=== PATIENT | female | born 1935 | race Caucasian/White ===

== ENCOUNTER 2018-12-11 00:27 | Observation (INO) | payer MEDICARE, OTHER ==
--- OUTSIDE RECORDS SUMMARY | 2018-12-11 00:35 | XMS REPORT | Continuity of Care Document ---
:1935 External Reference #:[id number] Author Name Renee Brandon O.D. Address [address] [place] [address] Care Team Providers Name Role Phone Tamara Fortune M.D. Primary Care Physician Unavailable Payers Date Identification Numbers Payment Provider Subscriber Policy Number: [id number] Medicare - [facility] Ally Deutsch PayID: [id number] [address] [place] [address] Policy Number: [id number] [employer] Ppo/Pos/Epo/Nap Ally Deutsch Group Number: [id number] [address] PayID: [id number] [place] [address] Problems Active Problems Provider Date Essential hypertension Onset: History of myocardial infarction Onset: Gastroesophageal reflux disease Onset: Keratosis Onset: Type 2 diabetes mellitus Onset: Note: 1989 Corneal endothelial dystrophy Arben Cadena M.D. Onset: 09/13/2015 Vitreous degeneration Arben Cadena M.D. Onset: 09/13/2015 Herpesviral keratitis Arben Cadena M.D. Onset: 09/13/2015 Presence of intraocular lens Arben Cadena M.D. Onset: 09/13/2015 Retinal detachment Arben Cadena M.D. Onset: 09/13/2015 Marginal corneal ulcer Marcia Mazariegos O.D. Onset: 01/12/2016 Angular blepharoconjunctivitis Marcia Mazariegos O.D. Onset: 01/12/2016 Conjunctivitis Roberto Poole M.D. Onset: 09/19/2016 Partial recent retinal detachment with Roberto Poole M.D. Onset: 2016 single defect Type 2 diabetes mellitus with mild Roberto Poole M.D. 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 Solution Chlorthalidone Unknown 50mg Tablets Carvedilol Unknown 25mg Tablets Atorvastatin Calcium Unknown 40mg Tablets Celexa every day Unknown 20mg Tablets Imdur Unknown 120mg Tablets ER 24HR Aspirin Unknown 81mg Tablets Lantus Unknown 100Unit/ML Solution Losartan Potassium Unknown 50mg Tablets History Medications Erythromycin apply to the 1Tube H10.89 Roberto Poole, 09/19/2016 - 5mg/GM right eye at M.D. 02/05/2017 Ointment night for 7days Neomycin/Polymyxin/De 1 drop 4 times 5ml H16.041 Marcia Mazariegos, 2015 - xamethasone a day Right O.D. 01/20/2016 eye for 10 3.5-52993-8.1 days Suspension Metformin HCL Unknown - 500mg 02/27/2018 Tablets Amlodipine Besylate Unknown - 5mg 09/14/2016 Tablets Lisinopril Unknown - 40mg Tablets 02/27/2018 Procedures Date Code Description Status 07/02/2018 06181 Est Patient Comprehensive Exam Completed 02/28/2018 70849 Est Patient Comprehensive Exam Completed 02/06/2017 72196 Scanning Computerized Ophthalmic Diagnostic Imaging, Completed Anterior 02/06/2017 46447 Determination Of Refractive State Completed 02/06/2017 67800 Est Patient Comprehensive Exam Completed 09/19/2016 73147 Est Patient Intermediate Exam Completed 02/03/2016 67333 Est Patient Intermediate Exam Completed 01/12/2016 96443 Est Patient Intermediate Exam Completed 09/13/2015 22396 Determination Of Refractive State Completed 09/13/2015 08151 Est Patient Comprehensive Exam Completed 09/13/2015 80740 Pachymetry Completed 04/09/2012 76120 Est Patient Comprehensive Exam Completed 04/03/2011 44432 Est Patient Comprehensive Exam Completed 02/20/2011 29083 Est Patient Intermediate Exam Completed 03/08/2010 14375 Est Patient Comprehensive Exam Completed Encounters Type Date Location Provider Dx Diagnosis Office Visit 09/27/2016 Roberto Luna H10.89 Other conjunctivitis 10:45a , fady Poole M.D. H18.51 Endothelial corneal dystrophy Office Visit 02/23/2014 10:00a Arben Chaudhry 054.43 Herpes Simplex MD Surinder, fady Carrion M.D. Disciform Keratitis Office Visit 02/16/2014 11:15a Arben Chaudhry 054.43 Herpes Simplex MD Surinder, fady Carrion M.D. Disciform Keratitis Office Visit 02/11/2014 1:30p Arben Chaudhry 372.30 Conjunctivitis Christie Cadena MD, fady Carrion M.D. Plan of Treatment 12/07/2018 - Renee Brandon O.D.H18.51 Endothelial corneal dystrophyComments: Smoking can increase the risk of developing or worsening any eye related disease , as well as affect your overall health. If you are a smoker, we strongly recommend that you quit.If you are not a smoker, we strongly recommend that you do not start. use artificial tears at least 3 times a dayif your symptoms worsen, please call the office to be seenFollow up:as [id number] Herpesviral keratitis
--- NOTE | 2018-12-11 01:22 | ED ---
HPI Chest Pain - HPI Summary HPI Summary: This patient is a 83 year old F [facility] by her with a chief complaint of CP and chest heaviness since this earlier today. Pt states that she had 2 episodes of chest pain and heaviness in the afternoon and evening today. The afternoon episode lasted 30 minutes. She says she came to the ED because she got shoulder aches, which she got when she had her LA 16 years ago. notes pt did not feel good the past few days. Pt notes her last stress test was last year. Patient reports SOB. Patient denies diaphoresis. The patient rates the pain 0/10 in severity. Symptoms aggravated by nothing. Symptoms alleviated by nothing. - History of Current Complaint Chief Complaint: EDChestPainROMI Time Seen by Provider: 12/11/18 01:06 Hx Obtained From: Patient, Family/Proposal Director - Onset/Duration: Started Hours Ago - today afternoon, Still Present Timing: Intermittent - 2 episodes of CP and heaviness. First episode was 30 minutes long. Pain Intensity: 0 Pain Scale Used: 0-10 Numeric Aggravating Factor(s): Nothing Alleviating Factor(s): Nothing Associated Signs and Symptoms: Positive: Chest Pain - and chest heaviness, Shortness of Breath, Other: - positive - shoulder, "not feeling good,". Negative: Diaphoresis - Additional Pertinent History Primary Care Physician: JULITA - Allergy/Home Medications Allergies/Adverse Reactions: Allergies Allergy/AdvReac Type Severity Reaction Status Date / Time clopidogrel [From Plavix] Allergy Joint Pain Verified 12/11/18 00:41 hydrocodone Allergy Difficulty Verified 12/11/18 00:41 Breathing ibuprofen Allergy See Comment Verified 12/11/18 00:41 naproxen [From Aleve] Allergy See Comment Verified 12/11/18 00:41 oxycodone Allergy Vomiting Verified 12/11/18 00:41 Home Medications: Home Medications ALPRAZolam [Alprazolam] 0.25 mg PO Q8HR PRN 12/11/18 [History Confirmed 12/11/18 ] Carvedilol [Coreg] 6.25 mg PO QPM 12/11/18 [History Confirmed 12/11/18] Hyoscyamine Sulfate 0.25 mg SL BID 12/11/18 [History Confirmed 12/11/18] Losartan TAB* [Cozaar TAB*] 50 mg PO DAILY 12/11/18 [History Confirmed 12/11/18] PMH/Surg Hx/FS Hx/Imm Hx Previously Healthy: No Endocrine/Hematology History: Reports: Hx Diabetes - LANTUS AND METFORMIN, Hx Anemia - OCCASIONALLY BORDERLINE Denies: Hx Systemic Lupus Erythematosus Cardiovascular History: Reports: Hx Angina, Hx Coronary Artery Disease, Hx Hypercholesterolemia, Hx Hypertension, Hx Myocardial Infarction Denies: Hx Congestive Heart Failure Respiratory History: Denies: Hx Asthma, Hx Chronic Bronchitis, Hx Chronic Obstructive Pulmonary Disease (COPD) GI History: Reports: Hx Gastroesophageal Reflux Disease - ON MED Denies: Hx Cirrhosis, Hx Crohn's Disease, Hx Diverticulosis, Hx Gall Bladder Disease, Hx Gastrointestinal Bleed, Hx Hiatal Hernia, Hx Irritable Bowel, Hx Jaundice, Other GI Disorders History: Denies: Hx Renal Disease Musculoskeletal History: Reports: Hx Back Problems - 3 herniated discs, Other Musculoskeletal History - SPINAL STENOSIS Sensory History: Reports: Hx Contacts or Glasses - GLASSES, Other Sensory Impairments - neuropathy in both feet Denies: Hx Cataracts, Hx Eye Prosthesis, Hx Glaucoma, Hx Legally Blind, Hx Macular Degeneration, Hx Vision Problem, Hx Hearing Aid Opthamlomology History: Reports: Hx Contacts or Glasses - GLASSES, Other Sensory Impairments - neuropathy in both feet Denies: Hx Cataracts, Hx Eye Prosthesis, Hx Glaucoma, Hx Legally Blind, Hx Macular Degeneration, Hx Vision Problem Psychiatric History: Reports: Hx Anxiety - ON MED Denies: Hx Depression, Hx Panic Disorder, Hx Post Traumatic Stress Disorder - Surgical History Surgical History: Yes Surgery Procedure, Year, and Place: LEFT FOOT SURGERY- [facility]. BILATERAL [facility]ACT [facility]TRA[facility] [facility]. RIGHT EYE RETINAL SURGERY- [facility] [place] . GALL BLADDER- [facility]- DECEMBER 01, 2014 Hx Anesthesia Reactions: No - Immunization History Immunizations Up to Date: Yes Infectious Disease History: No Infectious Disease History: Denies: Hx Clostridium Difficile, Hx Hepatitis, Hx of Known/Suspected MRSA, Hx Shingles, Hx Tuberculosis, Traveled Outside the [place] in Last 30 Days - Family History Known Family History: Positive: None - Social History Alcohol Use: Occasionally Hx Substance Use: No Substance Use Type: Reports: None Hx Tobacco Use: Yes Smoking Status (MU): Former Smoker Amount Used/How Often: LIGHT SMOKER FOR MOST OF 15 YEARS Review of Systems Constitutional: Other - positive - "does not feel good" Negative: Skin Diaphoresis Positive: Chest Pain - and chest heaviness Positive: Shortness Of Breath Positive: Myalgia - shoulder aches All Other Systems Reviewed And Are Negative: Yes Physical Exam - Summary Physical Exam Summary: VITAL SIGNS: Reviewed. GENERAL: Patient is a well-developed and nourished FEMALE who is lying comfortable in the stretcher. Patient is not in any acute respiratory distress. HEAD AND FACE: No signs of trauma. No ecchymosis, hematomas or skull depressions. No sinus tenderness. EYES: PERRLA, EOMI x 2, No injected conjunctiva, no nystagmus. EARS: Hearing grossly intact. Ear canals and tympanic membranes are within normal limits. MOUTH: Oropharynx within normal limits. NECK: Supple, trachea is midline, no adenopathy, no JVD, no carotid bruit, no c- spine tenderness, neck with full ROM CHEST: Symmetric, no tenderness at palpation LUNGS: Clear to auscultation bilaterally. No wheezing or crackles. CVS: Regular rate and rhythm, S1 and S2 present, no murmurs or gallops appreciated. ABDOMEN: Soft, non-tender. No signs of distention. No rebound no guarding, and no masses palpated. Bowel sounds are normal. EXTREMITIES: FROM in all major joints, no edema, no cyanosis or clubbing. NEURO: Alert and oriented x 3. No acute neurological deficits. Speech is normal and follows commands. SKIN: Dry and warm Triage Information Reviewed: Yes Vital Signs On Initial Exam: Initial Vitals Temp Pulse Resp BP Pulse Ox 97.6 F 61 16 195/61 95 12/11/18 00:30 12/11/18 00:30 12/11/18 00:30 12/11/18 00:30 12/11/18 00:30 Vital Signs Reviewed: Yes Diagnostics - Vital Signs Vital Signs Temp Pulse Resp BP Pulse Ox 12/11/18 00:30 97.6 F 61 16 195/61 95 - Laboratory Result Diagrams: 12/11/18 01:29 12/11/18 01:29 Lab Statement: Any lab studies that have been ordered have been reviewed, and results considered in the medical decision making process. - Radiology CXR Radiology Interpretation Completed By: ED Physician Summary of Radiographic Findings: no acute process - EKG 0151 Cardiac Rate: NL - 62 BPM EKG Rhythm: Sinus Rhythm Summary of EKG Findings: sinus rhythm, 62 BPM, first degree AV block, LBBB Chest Pain Course/Dx - Course Course Of Treatment: This patient is a 83 year old F presenting to [facility] accompanied by her with a chief complaint of CP and chest heaviness since this earlier today. Pt states that she had 2 episodes of chest pain and heaviness in the afternoon and evening today. The afternoon episode lasted 30 minutes. She says she came to the ED because she got shoulder aches, which she got when she had her LA 16 years ago. notes pt did not feel good the past few days. Pt notes her last stress test was last year. Patient reports SOB. Patient denies diaphoresis. The patient rates the pain 0/10 in severity. Symptoms aggravated by nothing. Symptoms alleviated by nothing. Physical exam shows no remarkable findings. Lab results show RBC 3.61, Hgb 11.3, Hct 33, absolute monos 1.1, sodium 131, chloride 96, BUN 31, BUN/creatinine ratio 36.0, glucose 125, calcium 10.4, AST 12, BNP 271. EKG at 0151 shows sinus rhythm, 62 BPM, first degree AV block, LBBB. CXR shows no acute process. During ED course , pt was given NTG DRIP and OINT, Apresoline. Dx are CP and HTN. At 0323, Dr. Billingsley discusses pt's case with Dr. Cloud, hospitalist, who agrees to admit the pt. Pt is agreeable. - Diagnoses Provider Diagnoses: HTN (hypertension), Chest pain - Provider Notifications Discussed Care Of Patient With: Meenakshi Cloud Time Discussed With Above Provider: 03:23 Instructed by Provider To: Other - Dr. Billingsley discusses pt's case with Dr. Cloud , hospitalist, who agrees to admit the pt. Discharge - Sign-Out/Discharge Documenting (check all that apply): Patient Departure - admit Patient Received Moderate/Deep Sedation with Procedure: No - Discharge Plan Condition: Stable Disposition: ADMITTED TO [facility] Referrals: Tamara Fortune MD [Primary Care Provider] - - Attestation Statements Document Initiated by Scribe: Yes Documenting Scribe: Kolby Mahan Provider For Whom Scribe is Documenting (Include Credential): Dr. Sommer Billingsley MD Scribe Attestation: IKolby, scribed for Dr. Sommer Billingsley MD on 12/11/18 at 0622. Status of Scribe Document: Ready
[2018-12-11] MEDS ORDERED: hydrALAZINE IV* 20 MG/ML VIAL IV SLOW PU ONE (01:28)
[2018-12-11 01:36] LABS: ABS Eosinophils 0.1 10^3/ul (0-0.6); ABS Lymphocytes 1.8 10^3/ul (1.0-4.8); ABS Monocytes 1.1 10^3/ul (0-0.8); ABS Neutrophils 3.6 10^3/ul (1.5-7.7); Eosinophil % 1.4 %; Hematocrit 33 % (35-47); Hemoglobin 11.3 g/dL (12.0-16.0); Lymphocyte % 27.6 %; Mean Corpuscular HGB Conc 34 g/dL (31-36); Mean Corpuscular Hemoglobin 31 pg (27-31); Mean Corpuscular Volume 92 fL (80-97); Mean Platelet Volume 8.1 fL (7.4-10.4); Platelet Count 169 10^3/uL (150-450); Red Blood Count 3.61 10^6 /uL (3.70-4.87); Red Cell Distribution Width 12 % (10-15); White Blood Count 6.7 10^3/uL (3.5-10.8)
[2018-12-11 01:44] LABS: Activated Partial Thrombo Time 34.3 seconds (26.0-38.0); INR 1.01 (0.82-1.09)
[2018-12-11 01:52] LABS: Albumin 3.5 g/dL (3.2-5.2); Albumin/Globulin Ratio 1.2 (1-3); Calcium 10.4 mg/dL (8.6-10.3); EGFR African American 76.6 (>60); EGFR Non-African American 63.3 (>60); Globulin 2.9 g/dL (2-4); Potassium 3.5 mmol/L (3.5-5.0); Total Bilirubin 0.3 mg/dL (0.2-1.0); Total Protein 6.4 g/dL (6.4-8.9)
[2018-12-11 01:54] LABS: Troponin I 0.02 ng/mL (<0.04)
[2018-12-11] MEDS ORDERED: nitroGLYCERIN DRIP* 25,000 MCG/250 ML BTL IV ONE (01:58)
[2018-12-11] MEDS ORDERED: Nitro 2% OINT* (Nitroglycerin) 1 INCH/PAK PAK TOPICAL ONE (04:07)
--- NOTE | 2018-12-11 04:29 | HP ---
History of Present Illness - History of Present Illness Reason for Visit: Chest Heavyness and shortness of breath. History of Present Illness: 83yoF with PMHx Diabetes, CAD s/p [place] 16 years ago without any stents comes in today due to chest heavyness and shortness of breath. Patient states overall she doesn't feel good the last few days. The symptoms occurred at rest. She took few nitro's at home which helped minimally. Was noted to have high BP so started on nitro drip in ER. Her symptoms improved with nitro drip. Past Medical History Diabetes on insulin Anemia Coronary Artery Disease Hypercholesterolemia Hypertension Myocardial Infarction Gastroesophageal Reflux Disease Back Problems - 3 herniated discs Neuropathy of feet. 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 Irritable bowel syndrome Past Surgical History LEFT FOOT SURGERY- [facility]- 2000. BILATERAL CATARACT EXTRACTION- [facility]. RIGHT EYE RETINAL SURGERY- [facility] . GALL BLADDER- [facility]- DECEMBER 01, 2014. Lumbar Spinal stenosis s/p Decompression of L2-3, L3-4, L4-5 in December 2014 Family History Non-contributory at patient's age. Social History Quit smoking in 1972, used to smoking less than pack a day less than 10 years total. Gin and tonic socially when she goes out for dinner. No other drug use. Lives with . 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 Allergies Allergy/AdvReac Type Severity Reaction Status Date / Time clopidogrel [From Plavix] Allergy Joint Pain Verified 12/11/18 00:41 hydrocodone Allergy Difficulty Verified 12/11/18 00:41 Breathing ibuprofen Allergy See Comment Verified 12/11/18 00:41 naproxen [From Aleve] Allergy See Comment Verified 12/11/18 00:41 oxycodone Allergy Vomiting Verified 12/11/18 00:41 Home Medications Medication Instructions Recorded Confirmed Type Citalopram TAB* [Celexa TAB*] 20 mg PO QAM 04/11/13 12/11/18 History Isosorbide Mononitrate [Isosorbide 120 mg PO DAILY 04/11/13 12/11/18 History Mononitrate ER] Acetaminophen [Extra Strength 1,000 mg PO Q6H PRN 01/05/15 12/11/18 History Acetaminop] Atorvastatin* [Lipitor*] 40 mg PO QPM 01/05/15 12/11/18 History Carvedilol TAB* [Coreg TAB*] 12.5 mg PO QAM 01/05/15 12/11/18 History Chlorthalidone TAB* [Hygroton TAB*] 50 mg PO QAM 01/05/15 12/11/18 History Lidocaine PATCH 5%* [Lidoderm 5% 1 patch TRANSDERM DAILY PRN 01/05/15 12/11/18 History Patch*] Aspirin EC TAB* [Ecotrin EC Low 81 mg PO DAILY 05/04/15 12/11/18 History Dose*] Insulin GLARGINE(*) [Lantus(*)] 42 units SUBCUT BEDTIME 05/04/15 12/11/18 History ALPRAZolam [Alprazolam] 0.25 mg PO Q8HR PRN 12/11/18 12/11/18 History Hyoscyamine Sulfate 0.25 mg SL BID 12/11/18 12/11/18 History Review of Systems - Measurements Intake and Output: Intake and Output Last 24 Hours 12/08/18 12/09/18 12/10/18 12/11/18 06:59 06:59 06:59 06:59 Intake Total 21.4 Balance 21.4 Weight 200 lb Intake: IV Fluids 21.4 - Review of Systems Constitutional Symptoms: Negative: Fever Dermatology: Negative: Rash Eyes: Negative: Change in Vision Pulmonary: Negative: Cough Cardiology: Positive: Shortness of Breath Negative: Palpitations, Edema Gastroenterology: Negative: Abdominal Pain, Nausea, Vomiting Endocrinology: Positive: Diabetes Mellitus Objective Vital Signs - 8 hr 12/11/18 12/11/18 12/11/18 00:30 00:37 00:39 Temperature 97.6 F Pulse Rate 61 59 58 Respiratory 16 12 Rate Blood Pressure 195/61 195/61 (mmHg) O2 Sat by Pulse 95 94 97 Oximetry 12/11/18 12/11/18 12/11/18 00:44 01:00 01:08 Temperature Pulse Rate 57 56 56 Respiratory 19 16 15 Rate Blood Pressure 184/68 182/56 (mmHg) O2 Sat by Pulse 99 97 96 Oximetry 12/11/18 12/11/18 12/11/18 01:20 01:21 01:43 Temperature Pulse Rate 58 57 56 Respiratory 20 19 22 Rate Blood Pressure 183/71 179/62 192/88 (mmHg) O2 Sat by Pulse 97 96 98 Oximetry 12/11/18 12/11/18 12/11/18 01:50 01:53 01:55 Temperature Pulse Rate 61 64 68 Respiratory 15 16 20 Rate Blood Pressure 216/88 208/81 215/106 (mmHg) O2 Sat by Pulse 100 100 97 Oximetry 12/11/18 12/11/18 12/11/18 02:00 02:07 02:10 Temperature Pulse Rate 66 64 64 Respiratory 18 16 17 Rate Blood Pressure 223/79 212/78 (mmHg) O2 Sat by Pulse 99 97 97 Oximetry 12/11/18 12/11/18 12/11/18 02:15 02:20 02:25 Temperature Pulse Rate 62 59 60 Respiratory 14 15 12 Rate Blood Pressure 194/76 191/71 196/79 (mmHg) O2 Sat by Pulse 97 98 98 Oximetry 12/11/18 12/11/18 12/11/18 02:30 02:35 02:40 Temperature Pulse Rate 61 60 59 Respiratory 14 13 16 Rate Blood Pressure 192/81 204/80 212/80 (mmHg) O2 Sat by Pulse 96 97 97 Oximetry 12/11/18 12/11/18 12/11/18 02:45 02:50 03:00 Temperature Pulse Rate 60 61 61 Respiratory 13 16 15 Rate Blood Pressure 213/86 198/81 (mmHg) O2 Sat by Pulse 97 97 98 Oximetry 12/11/18 12/11/18 12/11/18 03:01 03:05 03:10 Temperature Pulse Rate 62 61 63 Respiratory 14 7 12 Rate Blood Pressure 211/81 181/83 174/80 (mmHg) O2 Sat by Pulse 97 97 95 Oximetry 12/11/18 12/11/18 12/11/18 03:15 03:20 03:21 Temperature Pulse Rate 62 60 63 Respiratory 16 12 Rate Blood Pressure 162/85 182/71 (mmHg) O2 Sat by Pulse 96 95 Oximetry 12/11/18 12/11/18 12/11/18 03:25 03:30 03:36 Temperature Pulse Rate 58 61 61 Respiratory 13 22 16 Rate Blood Pressure 158/86 182/73 208/90 (mmHg) O2 Sat by Pulse 94 95 97 Oximetry 12/11/18 12/11/18 12/11/18 03:40 03:45 03:52 Temperature Pulse Rate 61 61 61 Respiratory 12 20 10 Rate Blood Pressure 196/90 207/86 154/60 (mmHg) O2 Sat by Pulse 96 97 96 Oximetry 12/11/18 12/11/18 12/11/18 03:53 03:55 04:00 Temperature Pulse Rate 59 60 60 Respiratory 14 21 12 Rate Blood Pressure 173/75 157/76 (mmHg) O2 Sat by Pulse 97 96 96 Oximetry 12/11/18 12/11/18 04:06 04:16 Temperature Pulse Rate 61 62 Respiratory 19 16 Rate Blood Pressure 165/76 171/69 (mmHg) O2 Sat by Pulse 95 96 Oximetry Oxygen Devices in Use Now: None Eyes: No Scleral Icterus, PERRLA Ears/Nose/Mouth/Throat: NL Teeth, Lips, Gums, Clear Oropharnyx, Mucous Membranes Moist Neck: NL Appearance and Movements; NL JVP Respiratory: Clear to Auscultation Cardiovascular: NL Sounds; No Murmurs; No JVD, RRR Abdominal: NL Sounds; No Tenderness; No Distention, No Hepatosplenomegaly Extremities: No Edema Skin: No Rash or Ulcers Neurological: Alert and Oriented x 3, NL Sensation, NL Muscle Strength and Tone Nutrition: Taking PO's Result Diagrams: 12/11/18 01:29 12/11/18 01:29 Assess/Plan/Problems-Billing Assessment: 83yoF w/HTN, DM here due to chest pressure and elevated BP. - Patient Problems (1) Chest pressure Current Visit: Yes Status: Acute Code(s): R07.89 - OTHER CHEST PAIN SNOMED Code(s): 764069843 Comment: Serial Troponins ECHO in AM Stress testing if troponins negative (2) Hypertensive urgency Current Visit: Yes Status: Acute Code(s): I16.0 - HYPERTENSIVE URGENCY SNOMED Code(s): 284385134 Comment: Restart home medication. Monitor BP. (3) Diabetes mellitus Current Visit: Yes Status: Acute Code(s): E11.9 - TYPE 2 DIABETES MELLITUS WITHOUT COMPLICATIONS SNOMED Code(s): 42476644 Comment: Restart lantus and check insulin sliding scale (4) Hyperlipidemia Current Visit: Yes Status: Acute Code(s): E78.5 - HYPERLIPIDEMIA, UNSPECIFIED SNOMED Code(s): 98256207 Comment: Check Lipid panel. (5) DVT prophylaxis Current Visit: Yes Status: Acute Code(s): Z29.9 - ENCOUNTER FOR PROPHYLACTIC MEASURES, UNSPECIFIED SNOMED Code(s): 797386790
[2018-12-11] MEDS ORDERED: Lidocaine PATCH 5%* 1 PATCH TRANSDERM PRN (05:02)
[2018-12-11] MEDS ORDERED: ALPRAZolam TAB* 0.25 MG PO PRN (05:02)
[2018-12-11] MEDS ORDERED: Dextrose 50% Syringe 50 ML* 25 GM/50 ML SYRINGE IV PUSH PRN (05:27)
[2018-12-11] MEDS: Isosorbide Mononitrate ER TAB* 60 MG PO SCH (05:28)
[2018-12-11 05:48] LABS: HDL Cholesterol 40.3 mg/dL
[2018-12-11] MEDS ORDERED: hydrALAZINE IV* 20 MG/ML VIAL IV SLOW PU PRN (06:27)
[2018-12-11] MEDS: Insulin LISPRO* 1 UNITS UNIT SUBCUT SCH ×4 (08:28→20:54)
[2018-12-11] MEDS: Carvedilol TAB* 6.25 MG PO SCH (08:54)
[2018-12-11] MEDS ORDERED: ISOSORBIDE MONONITRATE 120 MG PO SCH (09:00)
[2018-12-11] MEDS ORDERED: Carvedilol TAB* 25 MG PO SCH (09:00)
[2018-12-11] MEDS ORDERED: Losartan TAB* 25 MG PO SCH (09:00)
[2018-12-11] MEDS: Enoxaparin(*) 40 MG/0.4 ML SYR SUBCUT SCH (09:10)
[2018-12-11] MEDS: Aspirin EC TAB* 81 MG TAB.EC PO SCH (09:10)
[2018-12-11] MEDS: Citalopram TAB* 20 MG PO SCH (09:10)
[2018-12-11] MEDS ORDERED: Aminophylline IV* 25 MG/ML 10 ML VIAL ONE (09:46)
[2018-12-11] MEDS ORDERED: Regadenoson* 0.4 MG/5 ML SYRINGE ONE (09:46)
[2018-12-11] MEDS: Chlorthalidone TAB* 50 MG PO SCH (11:33)
[2018-12-11] MEDS: Acetaminophen TAB* 325 MG PO PRN (12:50)
[2018-12-11 14:49] LABS: Urine Appearance Clear; Urine Bilirubin Negative (Negative); Urine Blood 1+ (Negative); Urine Color Straw; Urine Glucose Negative (Negative); Urine Ketones Negative (Negative); Urine Nitrite Negative (Negative); Urine Protein Negative (Negative); Urine Urobilinogen Negative (Negative)
[2018-12-11 14:54] LABS: Urine Bacteria Absent (Absent); Urine Red Blood Cell Absent (Absent); Urine White Blood Cell Absent (Absent)
--- NOTE | 2018-12-11 15:58 | ECHO ---
*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 History: Takotsubo's. Coronary artery disease. PMH: Myocardial infarction. Risk factors: Hypertension. Diabetes mellitus. Conclusions Summary: 1. Left ventricle: The cavity size is normal. Wall thickness is moderately increased. Systolic function is normal. The estimated ejection fraction is 55-60%. Doppler parameters are consistent with elevated ventricular end-diastolic filling pressure. 2. Right ventricle: Systolic function is normal. 3. Mitral valve: There is trace to mild regurgitation. 4. Pericardium, extracardiac: A small amount of pericardial effusion is identified, within limits of normal. 5. No prior echocardiogram to compare. Study data: Transthoracic echocardiogram. Procedure: Transthoracic echocardiography was performed. Image quality was fair. Complete 2D, spectral Doppler, and color flow Doppler. Location: Bedside. Patient status: Inpatient. Patient room number: 444 01. Rhythm: Bradycardia. Findings Left ventricle: The cavity size is normal. Wall thickness is moderately increased. Systolic function is normal. The estimated ejection fraction is 55-60%. Wall motion is normal; there are no regional wall motion abnormalities. Doppler parameters are consistent with abnormal left ventricular relaxation (grade 1 diastolic dysfunction). Doppler parameters are consistent with elevated ventricular end-diastolic filling pressure. Right ventricle: The cavity size is normal. Wall thickness is mildly increased. Systolic function is normal. Left atrium: The atrium is normal in size. Right atrium: The atrium is normal in size. Mitral valve: The leaflets are normal thickness. There is no evidence of stenosis. There is trace to mild regurgitation. Aortic valve: The valve is trileaflet. The leaflets are normal thickness. There is no evidence of stenosis. There is trace regurgitation. Tricuspid valve: Not well visualized. There is no significant regurgitation. Pulmonic valve: Not well visualized. There is no significant regurgitation. Aorta: Aortic root: The aortic root is appears normal. Ascending aorta: The ascending aorta is poorly visualized. Aortic arch: The aortic arch is poorly visualized. Pericardium: A small amount of pericardial effusion is identified, within limits of normal. Pulmonary arteries: Not well visualized. Systemic veins: Inferior vena cava: The vessel is normal in size. The respirophasic diameter changes are blunted (< 50%). Measurements Left ventricle Value Ref Right atrium Value Ref SIVLIA, LAX 4.6 cm 3.8 - 5.2 SI dim, ES 5.0 cm 3.4 - 5.3 ESD, LAX 3.2 cm 2.2 - 3.5 ML dim, ES, A4C 3.2 cm 2.6 - 4.4 FS, LAX 30 % 27 - 45 Estimated RAP 8 mm Hg --------- PW, ED, LAX (H) 1.4 cm 0.6 - 0.9 EF 57 % 54 - 74 Aortic valve Value Ref E', lat vielka, TDI (L) 4.1 cm/sec >=10.0 Vielka diam, ED 2.3 cm ------ --- E/e', lat vielka, 20 Peak v, S 1.26 m/sec --------- TDI VTI, S 30.2 cm --------- E', med vielka, TDI (L) 3.7 cm/sec >=7.0 Mean grad, S 4.0 mm Hg ------ --- E/e', med vielka, 22 Peak grad, S 6.0 mm Hg --------- TDI E', avg, TDI 3.9 cm/sec Mitral valve Value Ref E/e', avg, TDI (H) 21 <=14 Peak E 0.82 m/sec ------ --- Peak A 1.09 m/sec --------- LVOT Value Ref Decel time 203 ms --------- Peak suzette, S 0.91 m/sec Peak grad, D 2.7 mm Hg --------- Mean grad, S 2 mm Hg Peak E/A ratio 0.8 --------- Ventricular septum Value Ref Aortic root Value Ref IVS, ED (H) 1.6 cm 0.6 - 0.9 Root diam 3.1 cm <4.1 Right ventricle Value Ref Decending aorta Value Ref SILVIA, LAX 2.3 cm Colt peak suzette 0.72 m/sec --------- SILVIA minor ax, 2.8 cm 1.9 - 3.5 A4C mid Inferior vena cava Value Ref Diam 1.7 cm --------- Left atrium Value Ref AP dim, ES 3.70 cm 2.70 - 3.80 ML dim, A4C 4.6 cm SI dim, A4C 5.4 cm Vol/bsa, ES, A/L 26 ml/m^2 16 - 34 Legend: (L) and (H) deepti values outside specified reference range. Prepared and electronically signed by Geno Trinidad MD 12/11/2018 15:58
[2018-12-11] MEDS ORDERED: Losartan TAB* 25 MG PO ONE (16:54)
--- NOTE | 2018-12-11 17:45 | PN ---
Subjective Date of Service: 12/11/18 Interval History: seen today post stress test and echo. no chest pressure. BP remain elevated better but elevated in the 150's to 180's. I will increase her losartan to 100 mg with 50 mg additional dose today (in addition to her morning losartan) Past Medical History: Unchanged from Admission Objective Active Medications: Acetaminophen (Tylenol Tab*) 975 mg PO Q6H PRN PRN Reason: PAIN Last Admin: 12/11/18 12:50 Dose: 975 mg Alprazolam (Xanax Tab*) 0.25 mg PO Q8HR PRN PRN Reason: ANXIETY Aspirin (Aspirin Ec Tab*) 81 mg PO DAILY [facility] Last Admin: 12/11/18 09:10 Dose: 81 mg Atorvastatin Calcium (Lipitor*) 40 mg PO QPM [facility] Last Admin: 12/11/18 17:14 Dose: 40 mg Carvedilol (Coreg Tab*) 6.25 mg PO QPM [facility] Last Admin: 12/11/18 17:12 Dose: 6.25 mg Carvedilol (Coreg Tab*) 12.5 mg PO QAM [facility] Last Admin: 12/11/18 08:54 Dose: Not Given Chlorthalidone (Hygroton Tab*) 50 mg PO QAM [facility] Last Admin: 12/11/18 11:33 Dose: 50 mg Citalopram Hydrobromide (Celexa Tab*) 20 mg PO QAM [facility] Last Admin: 12/11/18 09:10 Dose: 20 mg Dextrose (D50w Syringe 50 Ml*) 12.5 gm IV PUSH .FOR FS < 60 - SS PRN PRN Reason: FS < 60 Enoxaparin Sodium (Lovenox(*)) 40 mg SUBCUT Q24H [facility] Last Admin: 12/11/18 09:10 Dose: 40 mg Hydralazine HCl (Apresoline Iv*) 5 mg IV SLOW PU Q6H PRN PRN Reason: HEART RATE/PULSE GREATER THAN: Insulin Glargine (Lantus(*)) 42 units SUBCUT BEDTIME [facility] Insulin Human Lispro (Humalog*) 0 units SUBCUT ACHS [facility]; Protocol Last Admin: 12/11/18 17:09 Dose: Not Given Isosorbide Mononitrate (Imdur Er Tab*) 120 mg PO 0900 [facility] Last Admin: 12/11/18 05:28 Dose: 120 mg Lidocaine (Lidoderm 5% Patch*) 1 patch TRANSDERM DAILY PRN PRN Reason: PAIN Losartan Potassium (Cozaar Tab*) 100 mg PO DAILY [facility] Pharmacy Profile Note (Lidocaine Patch Remove*) 1 note PATCH OFF 2100 [facility] Vital Signs - 8 hr 12/11/18 11:23 Temperature 97.8 F Pulse Rate 62 Respiratory 16 Rate Blood Pressure 188/5 (mmHg) O2 Sat by Pulse 98 Oximetry Oxygen Devices in Use Now: None Appearance: awake, alert no distress. Ears/Nose/Mouth/Throat: NL Teeth, Lips, Gums, Mucous Membranes Moist Neck: NL Appearance and Movements; NL JVP Respiratory: Symmetrical Chest Expansion and Respiratory Effort, Clear to Auscultation Cardiovascular: NL Sounds; No Murmurs; No JVD Abdominal: NL Sounds; No Tenderness; No Distention Neurological: Alert and Oriented x 3 Result Diagrams: 12/11/18 01:29 12/11/18 01:29 Assess/Plan/Problems-Billing Assessment: 83yoF w/HTN, DM here due to chest pressure and elevated BP. - Patient Problems (1) Chest pressure Current Visit: Yes Status: Acute Code(s): R07.89 - OTHER CHEST PAIN SNOMED Code(s): 855090652 Comment: - Serial Troponins negative - ECHO 12/11/18 EF 55-60% diastolic dysfunctions - Nuclear Stress test low risk - will discharge home in am once BP stablized (2) Hypertensive urgency Current Visit: Yes Status: Acute Code(s): I16.0 - HYPERTENSIVE URGENCY SNOMED Code(s): 705813422 Comment: - continue her coreg 12.5 mg am and 6.25 pm; increase losartan to 100 mg daily due to persistent hypertension with BP 180's - Continue cholorthalidone and isosorbide 120 mg daily (3) DVT prophylaxis Current Visit: Yes Status: Acute Code(s): Z29.9 - ENCOUNTER FOR PROPHYLACTIC MEASURES, UNSPECIFIED SNOMED Code(s): 238460612 Comment: - Lovenox 40 mg SQ daily
[2018-12-11] MEDS ORDERED: Atorvastatin* 40 MG TAB PO SCH (18:00)
[2018-12-11] MEDS ORDERED: CARVEDILOL 12.5 MG PO SCH (18:00)
[2018-12-11] MEDS ORDERED: Carvedilol TAB* 6.25 MG PO SCH (18:00)
[2018-12-11] MEDS ORDERED: Insulin GLARGINE(*) 1 UNITS UNIT SUBCUT SCH (21:00)
[2018-12-11] MEDS ORDERED: Lidocaine Patch REMOVE* 1 NOTE MISC PATCH OFF SCH (21:00)
[2018-12-12] MEDS: Acetaminophen TAB* 325 MG PO PRN ×2 (00:39→08:43)
[2018-12-12] MEDS ORDERED: amLODIPine TAB* 5 MG PO ONE (01:05)
[2018-12-12] MEDS ORDERED: hydrALAZINE IV* 20 MG/ML VIAL IV SLOW PU ONE (03:51)
[2018-12-12] MEDS ORDERED: hydrALAZINE IV* 20 MG/ML VIAL ONE (04:17)
[2018-12-12] MEDS: Enoxaparin(*) 40 MG/0.4 ML SYR SUBCUT SCH (05:21)
[2018-12-12 06:09] LABS: BUN/Creatinine Ratio 25.4 (8-20); Calcium 9.3 mg/dL (8.6-10.3); EGFR African American 95.6 (>60); Potassium 3.2 mmol/L (3.5-5.0)
[2018-12-12] MEDS ORDERED: Potassium Chlor TAB* 20 MEQ TAB.ER PO ONE (08:18)
[2018-12-12] MEDS: Insulin LISPRO* 1 UNITS UNIT SUBCUT SCH ×2 (08:25→11:33)
[2018-12-12] MEDS: Isosorbide Mononitrate ER TAB* 60 MG PO SCH (08:38)
[2018-12-12] MEDS: Carvedilol TAB* 6.25 MG PO SCH (08:39)
[2018-12-12] MEDS: Citalopram TAB* 20 MG PO SCH (08:39)
[2018-12-12] MEDS: Chlorthalidone TAB* 50 MG PO SCH (08:39)
[2018-12-12] MEDS: Aspirin EC TAB* 81 MG TAB.EC PO SCH (08:39)
[2018-12-12] MEDS ORDERED: Losartan TAB* 25 MG PO SCH (09:00)
[2018-12-12 10:52] VITALS: BP 102/60
--- NOTE | 2018-12-12 13:29 | DS ---
DISCHARGE SUMMARY: DATE OF ADMISSION: 12/11/18 DATE OF DISCHARGE: 12/12/18 FINAL DISCHARGE DIAGNOSES: 1. Chest pressure secondary to hypertensive urgency. 2. Hypertensive urgency. 3. History of diabetes mellitus. 4. History of hyperlipidemia. 5. History of coronary artery disease. 6. History of gastroesophageal reflux disease. 7. History of anxiety. HOSPITAL COURSE: The patient was admitted via the emergency room at [facility] on 9 to the medical service after she presented to the ER with chest heaviness and shortness of breath t hat came on suddenly prior to admission, preceded by generalized fatigue and weakness for the past fe w days. The symptoms progressed. She took some nitro at home with minimal relief. She noted her bl ood pressure was significantly elevated, and she presented to the ER. In the ER, initially she was s tarted on nitro drip which resolved her symptoms. Therefore, she was admitted to the emergency servi . Her nitro drip was discontinued in the ER prior to admission. Serial cardiac enzymes were obtai tj, which were unremarkable with troponin negative x3. EKG during the hospital stay from the emerge ncy room was fairly unremarkable with normal sinus rhythm. Pulse 62, GA 261, QTc 460, left axis sera ation. No ST wave elevation. She was started on her home medication. I saw and evaluated the patie nt the following morning on 12/11/18, and at that day, she was undergoing a nuclear stress and a rest ing echocardiogram. The nuclear stress test which was done, report noted, reviewed, revealed finding a very small area of ischemia in the anterior septal wall, very low risk. The echocardiogram reveal ed ejection fraction of 55% to 60%, trace mild regurgitation, systolic function normal. No hypokines is. She was maintained in the hospital overnight on 12/11/18 and given her vitals which were signifi cantly elevated. Her blood pressure still at 11 in the morning on 12/11/18 was 188/59. I increased her losartan to 100 from 50. I elected to keep her overnight, and overnight around 2 o'clock in the morning, her blood pressure was 189/65. She was given amlodipine 10 mg x1 dose by the covering physi ron, and I saw and evaluated this patient this morning and her blood pressure was 146/57 and at 10 o 'clock in the morning was 102/60. I decreased her amlodipine to 5 mg. I visited with the patient an d her . I explained to her the dynamic of her blood pressure is not consistently stable throu ghout the day, it is variable, hence we elected to wait 2 weeks before repeating blood pressure check when we make any medication adjustment. She was provided reassurance as much as possible. She seem ed less anxious and I instructed her to follow up with her primary for routine blood pressure check, but she will benefit from titrating her losartan to 100, up from 50, and I am going to initiate a low er dose of amlodipine 5 mg and that will need to be further either titrated or discontinued as an out patient pending her routine followup. Also during the hospital course, her chemistry was noted to be significant for hypokalemia with a potassium of 3.2 on 12/12/18. This was supplemented with 40 mEq of potassium. I am going to send her with a potassium of 20 mEq simply due to the fact that she is o n chlorthalidone which may be contributing to her hypokalemia. Overall, the patient remained stable and not in any acute distress or significant distress. I did also review the EKG part of the stress test, she had sinus bradycardia at baseline. She had no definitive evidence of myocardial ischemia b y EKG criteria noted by Dr. Griffin Antoine. Therefore, with the above finding and workup, I think the p atient is stable for discharge and further followup as an outpatient with her PCP and Cardiology acco rdingly. PHYSICAL EXAMINATION: Temperature 97.6, pulse 67, respiratory rate 16, satting 97%, blood pressure 1 46/57, repeated 102/60. General: She is awake, alert, oriented, pleasant, in no apparent distress. Head and Neck: Normocephalic, atraumatic. Supple. Lungs: Clear to auscultation bilaterally. Car diovascular: S1, S2. Bradycardic. No murmur. Abdomen: Obese, soft, nontender, nondistended. Extre mities: No pedal edema. DISCHARGE MEDICATIONS: She was discharged on the following home meds: 1. Tylenol p.r.n. 2. Xanax 0.25 q.8. 3. Aspirin 81 daily. 4. Lipitor 40 daily. 5. Carvedilol 12.5 in the morning and 6.25 at night. 6. Chlorthalidone 50 mg in the morning. 7. Celexa 20 daily. 8. Hyoscyamine 0.25 sublingual b.i.d. 9. Lantus 42 units. 10. Isosorbide 120 daily. 11. Lidocaine patch p.r.n. New Medication on discharge: 1. Amlodipine 5 at bedtime. 2. Losartan 100 daily. 3. Potassium 20 mEq daily. INPATIENT DIAGNOSTIC STUDY: She had a nuclear stress test which was fairly unremarkable, low risk. Evidence of ischemia in the inferior wall. Echocardiogram: Ejection fraction within normal, 55% to 60%. No valvular disease. Chest x-ray shows cardiomegaly. No pneumonia or acute infiltrate. DISCHARGE RECOMMENDATION: Followup with the primary care in 1 to 2 weeks, further followup with her solar energy advisor as needed at the discretion of her primary. Take all medications as prescribed. DISCHARGE CONDITION: Stable. DISCHARGE DISPOSITION: Home. [id number]/[facility] #: [id number]
== END 2018-12-12 12:55 | disposition home or self-care (01) ==
LOC: ED 00:27 → MEDTELE 06:25 → INTOOBSV 06:25
PROVIDERS: ADMIT Internal Medicine; ATTEND Internal Medicine
DX: R07.89 Other chest pain (principal); I16.0 Hypertensive urgency; E11.9 Type 2 diabetes mellitus without complications; E78.5 Hyperlipidemia, unspecified; I25.10 Atherosclerotic heart disease of native coronary artery without angina pectoris; K21.9 Gastro-esophageal reflux disease without esophagitis; F41.9 Anxiety disorder, unspecified; R06.02 Shortness of breath; Z79.82 Long term (current) use of aspirin; Z79.4 Long term (current) use of insulin; E78.00 Pure hypercholesterolemia, unspecified; I25.2 Old myocardial infarction; K58.9 Irritable bowel syndrome, unspecified
CPT/HCPCS: 36415; 71045; 78452; 80048; 80053; 80061; 81003; 81015; 83036; 83605; 83880; 84484; 85025; 85610; 85730; 93005; 93306; 96365; 96366; 96372; 96375; 96376; 99285; A9270-GY; A9502; G0378; J0280; J0360; J1650; J2785

== ENCOUNTER 2019-08-05 20:55 | Emergency (ER) | payer MEDICARE, OTHER ==
[2019-08-05] MEDS ORDERED: NS 0.9% 1000 ML** 1,000 ML IV ONE (21:59)
[2019-08-05] MEDS ORDERED: Acetaminophen TAB* 325 MG PO ONE (22:03)
--- NOTE | 2019-08-05 22:35 | ED ---
GI/ HPI - HPI Summary HPI Summary: Patient is an 84 y/o F presenting to [facility] with chief complaint of fever. She states that around a week ago she had onset of dysuria and increased urgency of urination. Patient reports initially treating these Sx by consuming cranberry juice but experienced no relief in Sx. Patient notes that she has subsequently been experiencing nausea, back pain, fatigue, chills and noticed fever on . She was evaluated by PCP on 08/05/19 and was diagnosed with a bladder infection. Patient states that she received two shots of IM antibiotics and was prescribed Cipro, which she has not picked up yet. This evening, patient had an increase of her temperature to 103.5 F at home. She took 500 mg Tylenol at around 1800/1900 and came to ED for evaluation. Home medications and allergies are reviewed. - History of Current Complaint Chief Complaint: EDUrogenitalProblems Time Seen by Provider: 08/05/19 21:59 Stated Complaint: FEVER PER EMS Hx Obtained From: Patient Onset/Duration: Started Days Ago, Still Present Timing: Constant, Lasting Days Pain Intensity: 0 Location of Pain: Other - back Associated Signs and Symptoms: Positive: Back Pain, Nausea, Fever, Dysuria, UTI Symptoms - increased urgency of urination, Other: - positive - chills, fatigue - Additional Pertinent History Primary Care Physician: JULITA - Allergy/Home Medications Allergies/Adverse Reactions: Allergies Allergy/AdvReac Type Severity Reaction Status Date / Time clopidogrel [From Plavix] Allergy Joint Pain Verified 08/05/19 20:57 hydrocodone Allergy Difficulty Verified 08/05/19 20:57 Breathing ibuprofen Allergy See Comment Verified 08/05/19 20:57 naproxen [From Aleve] Allergy See Comment Verified 08/05/19 20:57 oxycodone Allergy Vomiting Verified 08/05/19 20:57 Home Medications: Home Medications Citalopram TAB* [Celexa TAB*] 20 mg PO QAM 04/11/13 [History Confirmed 08/08/19] Isosorbide Mononitrate [Isosorbide Mononitrate ER] 120 mg PO DAILY 04/11/13 [ History Confirmed 08/08/19] Acetaminophen [Extra Strength Acetaminop] 1,000 mg PO Q6H PRN 01/05/15 [History Confirmed 08/08/19] Atorvastatin* [Lipitor 80 MG*] 40 mg PO QPM 01/05/15 [History Confirmed 08/08/19 ] Carvedilol TAB* [Coreg TAB*] 12.5 mg PO QAM 01/05/15 [History Confirmed 08/08/19 ] Chlorthalidone TAB* [Hygroton TAB*] 50 mg PO QAM 01/05/15 [History Confirmed ] Lidocaine PATCH 5%* [Lidoderm 5% Patch*] 1 patch TRANSDERM DAILY PRN 01/05/15 [ History Confirmed 08/08/19] Aspirin EC TAB* [Ecotrin EC Low Dose 81 MG*] 81 mg PO DAILY 05/04/15 [History Confirmed 08/08/19] Insulin GLARGINE(*) [Lantus 100 units/ml 10 ml VIAL (*)] 42 units SUBCUT BEDTIME 05/04/15 [History Confirmed 08/08/19] ALPRAZolam [Alprazolam] 0.25 mg PO Q8HR PRN 12/11/18 [History Confirmed 08/08/19 ] Carvedilol [Coreg] 6.25 mg PO QPM 12/11/18 [History Confirmed 08/08/19] Hyoscyamine Sulfate 0.25 mg SL BID 12/11/18 [History Confirmed 08/08/19] Amlodipine Besylate [Norvasc] 5 mg PO BEDTIME 30 Days #30 tablet 12/12/18 [Rx Confirmed 08/08/19] Losartan Potassium 100 mg PO DAILY 30 Days #30 tablet 12/12/18 [Rx Confirmed ] Potassium Chlor TAB* [Potassium Chlor TAB 20 MEQ*] 20 meq PO DAILY 30 Days #30 tab.er 12/12/18 [Rx Confirmed 08/08/19] Sulfamethox/Trimethoprim DS* [Bactrim DS 800/160 TAB*] 1 tab PO BID #28 tab 04/16 [Rx Confirmed 08/08/19] PMH/Surg Hx/FS Hx/Imm Hx Endocrine/Hematology History: Reports: Hx Diabetes, Hx Anemia Denies: Hx Systemic Lupus Erythematosus Cardiovascular History: Reports: Hx Angina, Hx Coronary Artery Disease, Hx Hypercholesterolemia, Hx Hypertension, Hx Myocardial Infarction Denies: Hx Congestive Heart Failure Respiratory History: Denies: Hx Asthma, Hx Chronic Bronchitis, Hx Chronic Obstructive Pulmonary Disease (COPD) GI History: Reports: Hx Gastroesophageal Reflux Disease - ON MED Denies: Hx Cirrhosis, Hx Crohn's Disease, Hx Diverticulosis, Hx Gall Bladder Disease, Hx Gastrointestinal Bleed, Hx Hiatal Hernia, Hx Irritable Bowel, Hx Jaundice, Other GI Disorders History: Denies: Hx Renal Disease Musculoskeletal History: Reports: Hx Back Problems - 3 herniated discs, Other Musculoskeletal History - SPINAL STENOSIS Sensory History: Reports: Hx Contacts or Glasses, Other Sensory Impairments - neuropathy in both feet Denies: Hx Cataracts, Hx Eye Prosthesis, Hx Glaucoma, Hx Legally Blind, Hx Macular Degeneration, Hx Vision Problem, Hx Hearing Aid Opthamlomology History: Reports: Hx Contacts or Glasses, Other Sensory Impairments - neuropathy in both feet Denies: Hx Cataracts, Hx Eye Prosthesis, Hx Glaucoma, Hx Legally Blind, Hx Macular Degeneration, Hx Vision Problem Psychiatric History: Reports: Hx Anxiety - ON MED Denies: Hx Depression, Hx Panic Disorder, Hx Post Traumatic Stress Disorder - Surgical History Surgery Procedure, Year, and Place: LEFT FOOT SURGERY- [facility] [employer]- 2000. [place] [facility] [place]. [place] [facility] [place] - E[place] . GALL BLADDER- [employer]- DECEMBER 01, 2014 Hx Anesthesia Reactions: No Infectious Disease History: No Infectious Disease History: Denies: Hx Clostridium Difficile, Hx Hepatitis, Hx of Known/Suspected MRSA, Hx Shingles, Hx Tuberculosis, Traveled Outside the [place] in Last 30 Days - Family History Known Family History: Negative: Diabetes - Social History Alcohol Use: Occasionally Hx Substance Use: No Substance Use Type: Reports: None Hx Tobacco Use: Yes Smoking Status (MU): Former Smoker Amount Used/How Often: LIGHT SMOKER FOR MOST OF 15 YEARS Review of Systems - ROS Summary Review of Systems Summary: Home Medications Medication Instructions Recorded Confirmed Type Citalopram TAB* [Celexa TAB*] 20 mg PO QAM 04/11/13 12/11/18 History Isosorbide Mononitrate [Isosorbide 120 mg PO DAILY 04/11/13 12/11/18 History Mononitrate ER] Acetaminophen [Extra Strength 1,000 mg PO Q6H PRN 01/05/15 12/11/18 History Acetaminop] Atorvastatin* [Lipitor 80 MG*] 40 mg PO QPM 01/05/15 12/11/18 History Carvedilol TAB* [Coreg TAB*] 12.5 mg PO QAM 01/05/15 12/11/18 History Chlorthalidone TAB* [Hygroton TAB*] 50 mg PO QAM 01/05/15 12/11/18 History Lidocaine PATCH 5%* [Lidoderm 5% 1 patch TRANSDERM DAILY PRN 01/05/15 12/11/18 History Patch*] Aspirin EC TAB* [Ecotrin EC Low 81 mg PO DAILY 05/04/15 12/11/18 History Dose 81 MG*] Insulin GLARGINE(*) [Lantus 100 42 units SUBCUT BEDTIME 05/04/15 12/11/18 History units/ml 10 ml VIAL (*)] ALPRAZolam [Alprazolam] 0.25 mg PO Q8HR PRN 12/11/18 12/11/18 History Carvedilol [Coreg] 6.25 mg PO QPM 12/11/18 12/11/18 History Hyoscyamine Sulfate 0.25 mg SL BID 12/11/18 12/11/18 History Amlodipine Besylate [Norvasc] 5 mg PO BEDTIME 30 Days #30 tablet 12/12/18 Rx Losartan Potassium 100 mg PO DAILY 30 Days #30 tablet 12/12/18 Rx Potassium Chlor TAB* [Potassium 20 meq PO DAILY 30 Days #30 tab.er 12/12/18 Rx Chlor TAB 20 MEQ*] Sulfamethox/Trimethoprim DS* 1 tab PO BID #28 tab 08/06/19 Rx [Bactrim DS 800/160 TAB*] Positive: Fever, Chills, Fatigue Positive: Nausea Positive: dysuria, urgency - urination Positive: Myalgia - back pain All Other Systems Reviewed And Are Negative: Yes Physical Exam - Summary Physical Exam Summary: General: Well-developed, Obese female. No acute distress. HEENT: Normocephalic, Atraumatic. Eyes: Conjuctiva normal, PERRL. Oropharynx: Clear, mucous membranes moist, (-) exudates. Neck: Soft, FROM, (-) lymphadenopathy, (-) thyromegaly, (-) JVD. Cardiovascular: Normal sinus rhythm, (-) murmur. Lungs: Clear to auscultation bilaterally (-) wheezes, (-) rales, (-) rhonchi. Abdomen: Soft, non-tender, non-distended, (-) organomegaly, normal bowel sounds. Back: (-) CVA tenderness Extremities: No edema. Skin: Warm, dry, (-) rash. Neuro: Alert and oriented x3, moves all extremities equally. No ataxia. No gait disturbance. No sensory deficit. Normal strength, normal sensation. Psychiatric: Mood normal, affect normal Triage Information Reviewed: Yes Vital Signs On Initial Exam: Initial Vitals Temp Pulse Resp BP Pulse Ox 96.7 F 65 20 155/68 94 08/05/19 20:58 08/05/19 20:58 08/05/19 20:58 08/05/19 20:58 08/05/19 20:58 Vital Signs Reviewed: Yes Procedures - Sedation Patient Received Moderate/Deep Sedation with Procedure: No Diagnostics - Vital Signs Vital Signs Temp Pulse Resp BP Pulse Ox 08/05/19 21:20 100.4 F 08/05/19 20:58 96.7 F 65 20 155/68 94 - Laboratory Result Diagrams: 08/05/19 22:55 08/05/19 22:55 Lab Statement: Any lab studies that have been ordered have been reviewed, and results considered in the medical decision making process. - CT CT ABD/PEL CT Interpretation Completed By: Radiologist Summary of CT Findings: 1. There is colonic diverticulosis without evidence for acute diverticulitis. 2. There is urinary bladder wall thickening and mild fat stranding, cannot. exclude cystitis. 3. There is a wedge-shaped region of decreased enhancement in the superior pole. of the right kidney with mild adjacent perinephric fat stranding, suspicious. for right renal acute pyelonephritis. There is wall thickening and enhancement. involving the right renal pelvis and right ureter, suspicious for right. pyelitis and ureteritis. THIS REPORT WAS REVIEWED BY ED PHYSICIAN. GIGU Course/Dx - Course Course Of Treatment: 84-year-old female presenting from home for fever. Patient states she's been having symptoms of frequency and dysuria for about a week. She's been self treating herself with cranberry juice. Earlier today she went to the doctor's and was given IM antibiotics for UTI. A prescription for Toprol was called in but she has not picked it up yet. Tonight however her temperature went up greater than 103. Patient became concerned and came in for evaluation. She is febrile. Not significantly ill appearing. No significant abdominal or CVA tenderness. Workup demonstrates obvious urinary tract infection. Slightly elevated white count. CT demonstrates pyelonephritis. Patient given - Diagnoses Provider Diagnoses: Acute pyelonephritis Discharge ED - Sign-Out/Discharge Documenting (check all that apply): Patient Departure - discharge - Discharge Plan Condition: Stable Disposition: HOME Prescriptions: Sulfamethox/Trimethoprim DS* [Bactrim DS 800/160 TAB*] 1 tab PO BID #28 tab Patient Education Materials: Kidney Infection (ED) Referrals: Tamara Fortune MD [Primary Care Provider] - 3 Days Additional Instructions: PLEASE RETURN TO ED FOR ANY NEW OR CONCERNING SYMPTOMS. PLEASE FOLLOW UP WITH YOUR PRIMARY CARE PHYSICIAN WITHIN THREE DAYS. - Billing Disposition and Condition Condition: STABLE Disposition: Home - Attestation Statements Document Initiated by Evonne: Yes Documenting Scribe: GRACIE SINGH Provider For Whom Cristinaibe is Documenting (Include Credential): LEONARDO PURVIS MD Scribe Attestation: GRACIE Gill, scribed for LEONARDO PURVIS MD on 08/09/19 at 0230. Scribe Documentation Reviewed: Yes Provider Attestation: The documentation as recorded by the GRACIE juarez accurately reflects the service I personally performed and the decisions made by me, LEONARDO PURVIS MD Status of Scribe Document: Viewed
[2019-08-05 23:07] LABS: Hematocrit 30 % (35-47); Hemoglobin 9.9 g/dL (12.0-16.0); Mean Corpuscular HGB Conc 34 g/dL (31-36); Mean Corpuscular Hemoglobin 30 pg (27-31); Mean Corpuscular Volume 91 fL (80-97); Mean Platelet Volume 8.2 fL (7.4-10.4); Platelet Count 157 10^3/uL (150-450); Red Blood Count 3.26 10^6 /uL (3.70-4.87); Red Cell Distribution Width 13 % (10-15); White Blood Count 15.4 10^3/uL (3.5-10.8)
[2019-08-05 23:13] LABS: INR 1.32 (0.82-1.09)
[2019-08-05 23:27] LABS: ALT 7 U/L (7-52); AST 10 U/L (13-39); Alkaline Phosphatase 42 U/L (34-104); Anion Gap 4 mmol/L (2-11); BUN/Creatinine Ratio 26.1 (8-20); Blood Urea Nitrogen 24 mg/dL (6-24); C Reactive Protein 72.85 mg/L (<8.01); CO2 Carbon Dioxide 29 mmol/L (22-32); Calcium 8.1 mg/dL (8.6-10.3); Chloride 97 mmol/L (101-111); EGFR African American 70.7 (>60); EGFR Non-African American 58.4 (>60); Globulin 2.9 g/dL (2-4); Glucose 145 mg/dL (70-100); Potassium 3.4 mmol/L (3.5-5.0); Sodium 130 mmol/L (135-145); Total Protein 5.9 g/dL (6.4-8.9)
[2019-08-05 23:43] LABS: ABS Lymphocytes 1.5 10^3/ul (1.0-4.8); ABS Monocytes 2.4 10^3/ul (0-0.8); ABS Neutrophils 11.5 10^3/ul (1.5-7.7); Lymphocyte % 9.8 %
[2019-08-05 23:58] LABS: Urine Appearance Cloudy; Urine Bilirubin Negative (Negative); Urine Blood 3+ (Negative); Urine Color Yellow; Urine Glucose Negative (Negative); Urine Ketones Negative (Negative); Urine Nitrite Negative (Negative); Urine Protein Negative (Negative); Urine Specific Gravity 1.013 (1.010-1.030); Urine Urobilinogen Negative (Negative)
[2019-08-06 00:01] LABS: Urine Bacteria Absent (Absent); Urine Red Blood Cell 3+(>10/hpf) (Absent); Urine White Blood Cell 3+(>20/hpf) (Absent)
[2019-08-06] MEDS ORDERED: Iodixanol* (CONTRAST) 320 MG/ML 100 ML SDV IV ONE (00:13)
[2019-08-06 02:34] VITALS: BP 149/56
== END 2019-08-06 02:43 | disposition home or self-care (01) ==
LOC: ED 20:55
DX: N10 Acute pyelonephritis (principal); K57.30 Diverticulosis of large intestine without perforation or abscess without bleeding; R11.0 Nausea; R53.83 Other fatigue; E11.9 Type 2 diabetes mellitus without complications; Z79.4 Long term (current) use of insulin; I25.119 Atherosclerotic heart disease of native coronary artery with unspecified angina pectoris; I10 Essential (primary) hypertension; E78.00 Pure hypercholesterolemia, unspecified; K21.9 Gastro-esophageal reflux disease without esophagitis; F41.9 Anxiety disorder, unspecified; Z79.899 Other long term (current) drug therapy; Z88.6 Allergy status to analgesic agent; Z88.5 Allergy status to narcotic agent; Z88.8 Allergy status to other drugs, medicaments and biological substances; Z87.891 Personal history of nicotine dependence
CPT/HCPCS: 36415; 74177; 80053; 81003; 81015; 83605; 83690; 85025; 85610; 86140; 87040; 87086; 96360; 99283; A9270-GY; Q9967

== ENCOUNTER 2019-08-08 00:57 | Emergency (ER) | payer MEDICARE, OTHER ==
--- NOTE | 2019-08-08 01:04 | ED ---
HPI Chest Pain - HPI Summary HPI Summary: 84 year old F arriving via EMS to [facility] complains of chest pressure initially rated 5/10 in severity with shortness of breath starting yesterday 312 afternoon. Started as waxing and waning but then progressively worsened after she ate dinner. No dizziness, n/v, diaphoresis, pain or swelling in legs. She took nitroglycerin and her anxiety medications with no relief. She called EMS. EKG done by EMS showed bradycardia and irregular rhythm. No hx A fib. EMS gave aspirin which completely resolved the chest pressure. 0/10 pain currently. Patient additionally c/o LUQ pain x2 days. She was seen here 08/04 for flank pain, dx kidney infection, given rx abx. She has been improving. No fever. Symptoms aggravated by nothing. Symptoms alleviated by aspirin. Hx CT when she was 67 y/o. She has had regular f/u since then. She had nuclear stress test done Nov 2018 which was found to be low risk with no EKG changes. Medications reviewed. Allergies noted. - History of Current Complaint Hx Obtained From: Patient, EMS Onset/Duration: Started Hours Ago - 12, Still Present Timing: Constant, Intermittent Initial Severity: Moderate - 5 Current Severity: None Pain Intensity: 0 Pain Scale Used: 0-10 Numeric Character: Pressure/Squeezing Aggravating Factor(s): Nothing Alleviating Factor(s): Other: - aspirin Associated Signs and Symptoms: Positive: Negative - dizziness, nausea/vomiting, diaphoresis, fever, pain or swelling in legs, Other: - LUQ pain, shortness of breath - Additional Pertinent History Primary Care Physician: [id number] - Allergy/Home Medications Allergies/Adverse Reactions: Allergies Allergy/AdvReac Type Severity Reaction Status Date / Time clopidogrel [From Plavix] Allergy Joint Pain Verified 08/05/19 20:57 hydrocodone Allergy Difficulty Verified 08/05/19 20:57 Breathing ibuprofen Allergy See Comment Verified 08/05/19 20:57 naproxen [From Aleve] Allergy See Comment Verified 08/05/19 20:57 oxycodone Allergy Vomiting Verified 08/05/19 20:57 Home Medications: Home Medications Citalopram TAB* [Celexa TAB*] 20 mg PO QAM 04/11/13 [History Confirmed 08/08/19] Isosorbide Mononitrate [Isosorbide Mononitrate ER] 120 mg PO DAILY 04/11/13 [ History Confirmed 08/08/19] Acetaminophen [Extra Strength Acetaminop] 1,000 mg PO Q6H PRN 01/05/15 [History Confirmed 08/08/19] Atorvastatin* [Lipitor 80 MG*] 40 mg PO QPM 01/05/15 [History Confirmed 08/08/19 ] Carvedilol TAB* [Coreg TAB*] 12.5 mg PO QAM 01/05/15 [History Confirmed 08/08/19 ] Chlorthalidone TAB* [Hygroton TAB*] 50 mg PO QAM 01/05/15 [History Confirmed ] Lidocaine PATCH 5%* [Lidoderm 5% Patch*] 1 patch TRANSDERM DAILY PRN 01/05/15 [ History Confirmed 08/08/19] Aspirin EC TAB* [Ecotrin EC Low Dose 81 MG*] 81 mg PO DAILY 05/04/15 [History Confirmed 08/08/19] Insulin GLARGINE(*) [Lantus 100 units/ml 10 ml VIAL (*)] 42 units SUBCUT BEDTIME 05/04/15 [History Confirmed 08/08/19] ALPRAZolam [Alprazolam] 0.25 mg PO Q8HR PRN 12/11/18 [History Confirmed 08/08/19 ] Carvedilol [Coreg] 6.25 mg PO QPM 12/11/18 [History Confirmed 08/08/19] Hyoscyamine Sulfate 0.25 mg SL BID 12/11/18 [History Confirmed 08/08/19] Amlodipine Besylate [Norvasc] 5 mg PO BEDTIME 30 Days #30 tablet 12/12/18 [Rx Confirmed 08/08/19] Losartan Potassium 100 mg PO DAILY 30 Days #30 tablet 12/12/18 [Rx Confirmed ] Potassium Chlor TAB* [Potassium Chlor TAB 20 MEQ*] 20 meq PO DAILY 30 Days #30 tab.er 12/12/18 [Rx Confirmed 08/08/19] Sulfamethox/Trimethoprim DS* [Bactrim DS 800/160 TAB*] 1 tab PO BID #28 tab 04/16 [Rx Confirmed 08/08/19] PMH/Surg Hx/FS Hx/Imm Hx Endocrine/Hematology History: Reports: Hx Diabetes, Hx Anemia Denies: Hx Systemic Lupus Erythematosus Cardiovascular History: Reports: Hx Angina, Hx Coronary Artery Disease, Hx Hypercholesterolemia, Hx Hypertension, Hx Myocardial Infarction Denies: Hx Atrial Fibrillation, Hx Congestive Heart Failure Respiratory History: Denies: Hx Asthma, Hx Chronic Bronchitis, Hx Chronic Obstructive Pulmonary Disease (COPD) GI History: Reports: Hx Gastroesophageal Reflux Disease - ON MED Denies: Hx Cirrhosis, Hx Crohn's Disease, Hx Diverticulosis, Hx Gall Bladder Disease, Hx Gastrointestinal Bleed, Hx Hiatal Hernia, Hx Irritable Bowel, Hx Jaundice, Other GI Disorders History: Denies: Hx Renal Disease Musculoskeletal History: Reports: Hx Back Problems - 3 herniated discs, Other Musculoskeletal History - SPINAL STENOSIS Sensory History: Reports: Hx Contacts or Glasses, Other Sensory Impairments - neuropathy in both feet Denies: Hx Cataracts, Hx Eye Prosthesis, Hx Glaucoma, Hx Legally Blind, Hx Macular Degeneration, Hx Vision Problem, Hx Hearing Aid Opthamlomology History: Reports: Hx Contacts or Glasses, Other Sensory Impairments - neuropathy in both feet Denies: Hx Cataracts, Hx Eye Prosthesis, Hx Glaucoma, Hx Legally Blind, Hx Macular Degeneration, Hx Vision Problem Psychiatric History: Reports: Hx Anxiety - ON MED Denies: Hx Depression, Hx Panic Disorder, Hx Post Traumatic Stress Disorder - Surgical History Surgery Procedure, Year, and Place: LEFT FOOT SURGERY- [facility] [employer]- 2000. BILATERAL CATARACT EXTRACTION- [facility] [place]. RIGHT EYE RETINAL SURGERY- [facility] - [place] . 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 Negative: Vomiting, Nausea Musculoskeletal: Negative - pain or swelling in legs Neurological/Mental Status: Negative - Dizziness All Other Systems Reviewed And Are Negative: Yes Physical Exam - Summary Physical Exam Summary: Appearance: Well-appearing, Well-nourished, lying in bed comfortably Skin: Warm, dry, no obvious rash Eyes: sclera anicteric, no conjunctival pallor HENT: mucous membranes moist, pharynx appears normal Neck: Supple, nontender Respiratory: Clear to auscultation, no signs of respiratory distress Cardiovascular: Normal S1, S2. No murmurs. Normal distal pulses in tibial and radial bilaterally. Abdomen: Soft, nontender, normal active bowel sounds present Musculoskeletal: Normal, Strength/ROM Intact Neurological: A&Ox3, awake and alert, mentation is normal, speech is fluent and appropriate Psychiatric: affect is normal, does not appear anxious or depressed Triage Information Reviewed: Yes Vital Signs Reviewed: Yes Procedures - Sedation Patient Received Moderate/Deep Sedation with Procedure: No Diagnostics - Laboratory Result Diagrams: 08/08/19 01:10 08/08/19 01:10 Lab Statement: Any lab studies that have been ordered have been reviewed, and results considered in the medical decision making process. - Radiology CXR Radiology Interpretation Completed By: ED Physician - NO ACUTE PROCESS. PENDING OFFICIAL REPORT. 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 ED physician has reviewed and interpreted this EKG. Re-Evaluation - Re-Evaluation First Eval Re-Evaluation Time: 05:37 Change: Improved - patient agrees to d/c Chest Pain Course/Dx - Course Course Of Treatment: 84 y/o F with previous hx CT presents with chest pressure and shortness of breath starting 12 hours ago. Her symptoms started as waxing and waning but then progressively worsened throughout the day and night. She tried taking nitroglycerin and anxiety medications with no relief. She called EMS. EKG done showed bradycardia and irregular rhythm. No hx A fib. EMS gave aspirin which completely resolved the chest pressure. Patient additionally c/o LUQ pain x2 days. She was seen here Tu08/04, dx kidney infection, given rx abx , and has been improving since then. Bloodwork results with no significant abnormalities except for D-Dimer 380. Age adjusted D-Dimer is within normal limits for this patient. Physical exam unremarkable. An EKG shows sinus bradycardia 57 BPM and an old anterior infract. CXR shows no acute process. Patient will be discharged home with follow up from her primary care provider. Patient was instructed to return to Emergency Department for new or worsening symptoms. Patient understands and is agreeable to this plan. - Diagnoses Provider Diagnoses: Chest pain Discharge ED - Sign-Out/Discharge Documenting (check all that apply): Patient Departure - Discharge Plan Condition: Good Disposition: HOME Patient Education Materials: Chest Pain (ED) Referrals: Tamara Fortune MD [Primary Care Provider] - - Billing Disposition and Condition Condition: GOOD Disposition: Home - Attestation Statements Document Initiated by Kavitae: Yes Documenting Scribe: Bobbi Champion Provider For Whom Evonne is Documenting (Include Credential): Abram Dimas MD Scribe Attestation: Bobbi Gill scribed for Abram Dimas MD on 08/12/19 at 0616. Scribe Documentation Reviewed: Yes Provider Attestation: The documentation as recorded by the Bobbi juarez accurately reflects the service I personally performed and the decisions made by me, Abram Dimas MD Status of Scribe Document: Viewed
[2019-08-08 01:26] LABS: Hematocrit 31 % (35-47); Hemoglobin 10.4 g/dL (12.0-16.0); Mean Corpuscular HGB Conc 34 g/dL (31-36); Mean Corpuscular Hemoglobin 31 pg (27-31); Mean Corpuscular Volume 90 fL (80-97); Platelet Count 189 10^3/uL (150-450); Red Blood Count 3.41 10^6 /uL (3.70-4.87); Red Cell Distribution Width 13 % (10-15); White Blood Count 9.6 10^3/uL (3.5-10.8)
--- OUTSIDE RECORDS SUMMARY | 2019-08-08 01:29 | XMS REPORT | Summary of Care ---
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); [address] [place] [address] Coronary artery disease, angina presence unspecified, unspecified vessel or lesion type, unspecified whether mentasta [place] [address] [phone] Allergies Active Allergy Reactions Severity Noted Date Comments Alc-Sertraline 04/15/2007 Fluzone High-Dose Other 03/11/2015 Body aches, fever both times given Hydrocodone SOB 02/22/2004 Lexapro 04/15/2007 Omeprazole GI Reaction 12/07/2015 Diarrhea Oxycodone 06/20/2007 Clopidogrel Rash 02/22/2004 Bupropion 04/15/2007 documented as of this encounter (statuses as of 08/05/2019) Medications Medication Sig Dispensed Refills Start End Status Date Date Aspirin 81 MG Oral Take 81 mg by 0 Active Tab mouth DAILY. acetaminophen Take 2 Tabs by 30 Tab 0 Active (TYLENOL) 325 MG mouth EVERY FOUR 5 Oral Tab HOURS NEEDED for Pain. Lancets Does not 1 Each by Does not 300 Each 3 Active apply apply route THREE 7 MiscIndications: TIMES DAILY. Dx: Type 2 diabetes Z79.4 mellitus without complication, unspecified [facility] insulin use status Insulin Glargine INJECT 45 mL 3 Active (LANTUS SOLOSTAR) SUBCUTANEOUSLY 40 9 100 UNIT/ML UNITS EVERY NIGHT Subcutaneous AT BEDTIME Solution Pen-injectorIndica tions: Type 2 diabetes mellitus without complication (HCC), Type 2 diabetes mellitus without complication, without long-term current use of insulin (HCC) ALPRAZolam (XANAX) TAKE 1 TABLET BY 120 Tab 0 Active 0.25 MG Oral MOUTH 4 TIMES 9 TabIndications: DAILY NEEDED Generalized FOR ANXIETY. anxiety disorder ONE TOUCH ULTRA USE 1 STRIP 3 300 Strip 5 Active TEST STRIPS In TIMES DAILY 9 Vitro StripIndications: Type 2 diabetes mellitus without complication (HCC) Losartan Potassium Take 1 Tab by 90 Tab 3 Active 100 MG Oral mouth DAILY. 9 TabIndications: Essential hypertension carvedilol (COREG) Take 1 Tab by 180 Tab 3 Active 12.5 MG Oral Tab mouth TWICE DAILY. 9 loperamide Take 1 Cap by 90 Cap 3 Active (IMODIUM) 2 MG mouth DAILY. [address] 1 TAB UNDER 100 Tab 3 Active (NITROSTAT) 0.4 MG TONGUE EVERY 5 9 Sublingual SL MIN NEEDED FOR TabIndications: CHEST PAIN. NOT TO Angina pectoris EXCEED 3 TABS IN (HCC) 15 MIN. CALL 911 IF CHEST PAIN PERSISTS. Potassium Chloride TAKE ONE TABLET BY 90 Tab 3 Active ER 20 MEQ Oral Tab MOUTH EVERY DAY 9 CR FOR LOW AMOUNT POTASSIUM IN BLOOD amLodipine Take 1 Tab by 90 Tab 3 Active (NORVASC) 5 MG mouth EVERY 9 Oral Tab BEDTIME. citalopram Take 1 Tab by 90 Tab 1 Active (CELEXA) 20 MG mouth DAILY. 0 Oral TabIndications: Depression, unspecified depression type atorvastatin TAKE 1 TABLET BY 90 Tab 3 Active (LIPITOR) 40 MG MOUTH DAILY 0 Oral TabIndications: Lipid disorder chlorthalidone TAKE 1 TABLET BY 90 Tab 3 Active (HYGROTON) 50 MG MOUTH DAILY 0 Oral TabIndications: Essential hypertension lidocaine APPLY 1 PATCH 90 Patch 3 Active transdermal patch TOPICALLY EVERY 0 (LIDODERM) 5 % 24 HOURS. (12 Apply externally HOURS ON AND 12 PatchIndications: HOURS OFF) Arthralgia of left knee isosorbide Take 1 Tab by 90 Tab 3 Active MONOnitrate mouth DAILY. 0 (IMDUR) 120 MG Oral TABLET SR 24 HRIndications: Coronary artery disease, angina presence unspecified, unspecified vessel or lesion type, unspecified whether mentasta or transplanted heart Insulin Pen Needle Inject 1 Each 100 Each 2 Active (BD PEN NEEDLE beneath the skin 0 OSIRIS U/F) 32G X 4 DAILY. Dx: Z79.4 MM Does not apply MiscIndications: Type 2 diabetes mellitus without complication, without long-term current use of insulin (HCC) ciprofloxacin Take 1 Tab by 20 Tab 0 Active (CIPRO) 500 MG mouth TWICE DAILY. 0 Oral TabIndications: Acute cystitis without hematuria isosorbide TAKE 1 TABLET BY 90 Tab 3 Discontinued MONOnitrate MOUTH DAILY 9 020 (Reorder) (IMDUR) 120 MG Oral TABLET SR 24 HR isosorbide TAKE 1 TABLET BY 90 Tab 3 Discontinued MONOnitrate MOUTH DAILY 9 020 (Duplicate (IMDUR) 120 MG Order) Oral TABLET SR 24 HR losartan (COZAAR) TAKE 1 TABLET BY 90 Tab 3 Discontinued 50 MG Oral MOUTH DAILY 0 020 (Dose TabIndications: Adjustment) Essential hypertension Insulin Pen Needle Inject 1 Each 100 Each 2 Discontinued (BD PEN NEEDLE beneath the skin 0 020 (Reorder) OSIRIS U/F) 32G X 4 DAILY. Dx: Z79.4 MM Does not apply MiscIndications: Type 2 diabetes mellitus without complication, without long-term current use of insulin ([facility]) Hospital, Clinic, or Other Ordered Dose Route Frequency Start Date End Date Status Facility Administered Medication ceftriaxone (ROCEPHIN) 1000 mg IJ NOW 08/05/2019 08/05/2019 Ended injection 1,000 mgIndications: Acute cystitis without hematuria documented as of this encounter (statuses as of 08/05/2019) Active Problems Problem Noted Date Acute dysfunction of both eustachian tubes 04/06/2015 Cholelithiasis 06/16/2014 Overview: Surgery Dr Cazares 12/09 Spinal stenosis of lumbar region with neurogenic claudication 03/09/2014 Non-cardiac chest pain 02/06/2014 Overview: [facility] admission rule out myocardial infarction Ct scan negative cardiac cath 02/08: 40% LCX, 90% distal LCX, 90% OM1, 60%LAD, 60% D1 left ventricular ejection fraction 60% CTA negative for dissection Chronic low back pain 02/06/2014 CAD (coronary artery disease) 02/22/2012 Overview: 05/11 nuclear medicine stress test - Showed small area of ischemia to the anterior wall with normal LV function - unchanged form the previous Stress test - Review by her engraver copperplate Dr Chung 05/11 - Stable - Review in a yr Nuclear medicine [place] [facility] [place] part [place] chest pain work up - Cath 08/12 [place] - done for chest pain - carvediol was decreased- HTN (hypertension) 02/22/2012 Overview: [facility] 01/2014: renal art duplex negative for NINA BMI 34.0-34.9,adult 12/20/2010 Overview: This patient's BMI has been calculated and is above average, and BMI management plan is completed. 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 03/02/2009 Overview: Care plan done 05/2014 Depressive disorder, not elsewhere classified 06/03/2007 Reflux esophagitis 06/03/2007 Intervertebral disc herniation 04/15/2007 Overview: L2-3 Other and unspecified hyperlipidemia 10/23/2006 Overview: Lab Results Lab Results Value Date/Time CHOL 118 01/16/2011 0829 TRIG 77 01/16/2011 0829 HDL 44 01/16/2011 0829 LDL 59 01/16/2011 0829 LDLHDLRATIO 1.3 01/16/2011 0829 CHOLHDLRATIO 2.7 01/16/2011 0829 documented as of this encounter (statuses as of 08/05/2019) Resolved Problems Problem Noted Date Resolved Date Diabetes mellitus due to underlying condition with 10/09/2018 07/07/2019 hyperosmolarity without coma, without long-term current use of insulin Cardiac ischemia 02/22/2012 02/06/2014 Overview: 01/17/12 Stress test FINAL IMPRESSION: Submaximal symptom-limited dobutamine stress test. Resting hypertension with physiologic blood pressure response to dobutamine. This test is positive for ischemia by symptoms, EKG and echocardiographic imaging. Fx Right 5th Metatarsal-Closed 12/14/2009 02/06/2014 Type 2 diabetes mellitus 06/03/2007 02/17/2014 Overview: Replaced inactive diagnosis Generalized anxiety disorder 04/15/2007 02/06/2014 Coronary atherosclerosis of unspecified type of vessel, mentasta 01/21/200704/2014 or graft Overview: and 06/[address]- no reversible ischemia 03/2002, acute infarct. Catheterization Dr. Teixeira, two-vesseldisease; diffuse disease- lad, diagonal branch- newly occluded small circumflex obtuse marginal branch. medical management recommended EF 30%. 03/2005 -positive stress test = anterior wall ischemia. catheterization: EF35% to 40%. and mild renal arterystenosis. RCA -luminal irregularities,LAD coronary artery anatomy was unchanged and diffusely diseased l and require multiple stenting, Dr. Teixeira felt that medical management was her best option. Herniated lumbar intervertebral disc 01/21/2007 02/06/2014 documented as of this encounter (statuses as of 08/05/2019) Immunizations Name Administration Dates Next Due Influenza (IM) Preservative Free 02/22/2018, 03/28/2017, 02/07/2013, 01/24/2012, 03/02/2011, 02/16/2009 Influenza Vaccine 65 Yrs + 02/04/2019 Influenza Vaccine High Dose 03/08/2015, 02/06/2014 Influenza Vaccine Whole 03/23/2008, 04/09/2007, 04/09/2007 Influenza Virus Vaccine Pres Free 6-35 03/09/2010 Months PNEUMOCOCCAL POLYSACCHARIDE VACCINE 02/06/2014 Pneumococcal Conjugate(13 Valent) 11/02/2017 TDAP Vaccine 07/07/2019 documented as of this encounter Social History Tobacco Use Types Packs/Day Years Used Date Former Smoker 1 20 Quit: 02/22/1973 Smokeless Tobacco: Never Used Tobacco Cessation: Counseling Given: No Alcohol Use Drinks/Week oz/Week Comments Yes 0 Standard drinks or equivalent 0.0 OCC WINE Sex Assigned at Date Recorded Not on file documented as of this encounter Last Filed Vital Signs Vital Sign Reading Time Taken Comments Blood Pressure 82/38 08/05/2019 10:49 AM EDT Pulse 71 08/05/2019 10:43 AM EDT Temperature 37.2 08/05/2019 10:43 AM EDT C (99 F) Respiratory Rate - - Oxygen Saturation 97% 08/05/2019 10:43 AM EDT Inhaled Oxygen Concentration - - Weight 91.6 kg (202 lb) 08/05/2019 10:43 AM EDT Height 167.6 cm (5' 6") 08/05/2019 10:43 AM EDT Body Mass Index 32.6 08/05/2019 10:43 AM EDT documented in this encounter Patient Instructions Patient InstructionsCreTamara kendall MD - 08/05/2019 10:20 AM EDTIf fever spike / Not feeling well - we disucssed going to the ER Rest / fluid - documented in this encounter Progress Notes Tamara Fortune MD - 08/05/2019 10:20 AM EDT NAME:Ally Deutsch 1935: 1935 ENC Date: 08/05/2019 CC: Chief Complaint Patient presents with ? Sick fever and UTI sx x 5 days - resolved - fever remained, aches, chills ? Other unable to void for UA Ally Deutsch is a 84-y.o. female Has been having symptoms of UTI (urgency/ frequenc y- no dysuria ) in the last few days - Drank water and cranberry juice - felt better for a couple of days and then yesterday pm started to feel poorly again -low grade temp Then upto 102.7 Took tylenol this am = Denies any other focal symptoms - no cough / runny nose - back pain - Current Outpatient Medications Medication Sig ? acetaminophen (TYLENOL) 325 MG Oral Tab Take 2 Tabs by mouth EVERY FOUR HOURS NEEDED forPain. ? ALPRAZolam (XANAX) 0.25 MG Oral Tab TAKE 1 TABLET BY MOUTH 4 TIMES DAILY NEEDED FOR ANXIETY. ? amLodipine (NORVASC) 5 MG Oral Tab Take 1 Tab by mouth EVERY BEDTIME. ? Aspirin 81 MG Oral Tab Take 81 mg by mouth DAILY. ? atorvastatin (LIPITOR) 40 MG Oral Tab TAKE 1 TABLET BY MOUTH DAILY ? carvedilol (COREG) 12.5 MG Oral Tab Take 1 Tab by mouth TWICE DAILY. ? chlorthalidone (HYGROTON) 50 MG Oral Tab TAKE 1 TABLET BY MOUTH DAILY ? ciprofloxacin (CIPRO) 500 MG Oral Tab Take 1 Tab by mouth TWICE DAILY. ? citalopram (CELEXA) 20 MG Oral Tab Take 1 Tab by mouth DAILY. ? Insulin Glargine (LANTUS SOLOSTAR) 100 UNIT/ML Subcutaneous Solution Pen -injector INJECT SUBCUTANEOUSLY 40 UNITS EVERY NIGHT AT BEDTIME ? Insulin Pen Needle (BD PEN NEEDLE OSIRIS U/F) 32G X 4 MM Does not apply Misc Inject 1 Each beneath the skin DAILY. Dx: Z79.4 ? isosorbide MONOnitrate (IMDUR) 120 MG Oral TABLET SR 24 HR Take 1 Tab by mouth DAILY. ? Lancets Does not apply Misc 1 Each by Does not apply route THREE TIMES DAILY. Dx: Z79.4 ? lidocaine transdermal patch (LIDODERM) 5 % Apply externally Patch APPLY 1 PATCH TOPICALLY EVERY 24 HOURS. (12 HOURS ON AND 12 HOURS OFF) ? loperamide (IMODIUM) 2 MG Oral Cap Take 1 Cap by mouth DAILY. ? Losartan Potassium 100 MG Oral Tab Take 1 Tab by mouth DAILY. ? nitroglycerin (NITROSTAT) 0.4 MG Sublingual SL Tab PLACE 1 TAB UNDER TONGUE EVERY 5 MIN NEEDED FOR CHEST PAIN. NOT TO EXCEED 3 TABS IN 15 MIN. CALL 911 IF CHEST PAIN PERSISTS. ? ONE TOUCH ULTRA TEST STRIPS In Vitro Strip USE 1 STRIP 3 TIMES DAILY ? Potassium Chloride ER 20 MEQ Oral Tab CR TAKE ONE TABLET BY MOUTH EVERY DAY FOR LOW AMOUNT POTASSIUM IN BLOOD No current facility-administered medications for this visit. Patient Active Problem List Diagnosis Date Noted ? Acute dysfunction of both eustachian tubes 04/06/2015 ? Cholelithiasis 06/16/[address] Cazares 12/09 ? Spinal stenosis of lumbar region with neurogenic claudication 03/09/2014 ? Non-cardiac chest pain 02/06/2014 [facility] admission rule out myocardial infarction Ct scan negative cardiac cath 02/08: 40% LCX, 90% distal LCX, 90% OM1, 60%LAD, 60 % D1 left ventricular ejection fraction 60% CTA negative for dissection ? Chronic low back pain 02/06/2014 ? CAD (coronary artery disease) 02/22/201205/11 nuclear medicine stress test - Showed small area of ischemia to the anterior wall with normal LV function - unchanged form the previous Stress test - Review by her engraver copperplate Dr Chung 05/11 - Stable - Review in a yr Nuclear medicine [place] [facility] [place] part [place] chest pain work up - Cath 08/12 [place] - done for chest pain - carvediol was decreased- ? HTN (hypertension) 02/22/2012 [facility] 01/2014: renal art duplex negative for NINA ? BMI 34.0-34.9,adult 12/20/2010 This patient's BMI has been calculated and is above average, and BMI management plan is completed. General patient education discussion including: obesity-related excess mortality ? Well controlled type 2 diabetes mellitus with peripheral neuropathy (HCC ) 03/02/2009 Care plan done 05/2014 ? Depressive disorder, not elsewhere classified 06/03/2007 ? Reflux esophagitis 06/03/2007 ? Intervertebral disc herniation 04/15/2007 L2-3 ? Other and unspecified hyperlipidemia 10/23/2006 Lab Results Lab Results Value Date/Time CHOL 118 01/16/2011 0829 TRIG 77 01/16/2011 0829 HDL 44 01/16/2011 0829 LDL 59 01/16/2011 0829 LDLHDLRATIO 1.3 01/16/2011 0829 CHOLHDLRATIO 2.7 01/16/2011 0829 Family History Problem Relation Age of Onset ? Heart Sister ? Kidney Disease Sister kidney transplant ? Cancer Paternal Grandmother breast ? Cancer Paternal Grandfather mouth No cardiopulmonary symptoms No upper or lower GI complaints No urinary tract symptoms. No bruising/ bleeding. No neurological complaints . No insomnia.+ . Social History Tobacco Use ? Smoking status: Former Smoker Packs/day: 1.00 Years: 20.00 Pack years: 20.00 Last attempt to quit: 02/22/1973 Years since quittin.4 ? Smokeless tobacco: Never Used Substance Use Topics ? Alcohol use: Yes Alcohol/week: 0.0 standard drinks Comment: OCC WINE ? Drug use: No OBJECTIVE: BP (!) 82/38 (BP Location: Right arm, Patient Position: Sitting) | Pulse 71 | Temp 99 F (37.2 C) | Ht 5' 6" (1.676 m) | Wt 202 lb (91.6 kg) | SpO2 97% | BMI 32.60 kg/m . Repeat blood pressure ( after 2 cups water ) 110/43 - Heent neg Lungs Clear CV rrr No CVA tenderness- Abd soft, nontender, no organomegaly Ext no edema Neuro: intellect intact ; motor including gait unremarkable Patient observed in office for 55 minutes- Multiple blood pressures taken / was able to hydrate without problem Unable to void for urine culture - but a few drops urine made - after drinking 2 cups water felt better and blood pressure came up Not enough urine to wet dipstick completely - but early indication of leukocytes - A/P ICD-9-CM ICD-10-CM 1. Acute cystitis without hematuria - Deeper infection liekly with fever / low blood pressure 595.0 N30.00 ciprofloxacin (CIPRO) 500 MG Oral Tab ceftriaxone (ROCEPHIN) injection 1,000 mg 2. Type 2 diabetes mellitus without complication, without long-term current use of insulin (HCC) 250.00 E11.9 Insulin Pen Needle (BD PEN NEEDLE OSIRIS U/F) 32G X 4 MM Does not apply Misc 3. Coronary artery disease, angina presence unspecified, unspecified vessel or lesion type, unspecified whether mentasta or transplanted heart 414.00 I25.10 isosorbide MONOnitrate (IMDUR) 120 MG Oral TABLET SR 24 HR Gave patient option of going to ER or shot of antibiotic here with oral antibiotic at home- Low blood pressure and pale appearance worrisome initiallly but Patient visibly better after oral fluids and snack - Reluctant to send patient to hospital - overrun with flu Extended time spent in the office Shot rocephin gvien Patient Instructions If fever spike / Not feeling well - we disucssed going to the ER Rest / fluid - AUTHOR: Tamara Fortune MD 14:12 08/05/2019 documented in this encounter Plan of Treatment Date Type Specialty Care Team Description 08/28/2019 Lab Internal Medicine 09/08/2019 Office Visit Internal Medicine Tamara Fortune MD [address] [place] [address] [phone] Health Maintenance Due Date Last Done Comments FOOT EXAM 05/07/2019 05/07/2018, 05/07/2018, 05/07/2018, Additional history exists Diabetic Eye Exam 07/02/2019 07/02/2018, 07/02/2018 HEMOGLOBIN A1C 09/25/2019 03/26/2019, 10/01/2018, 02/28/2018, Additional history exists DEPRESSION SCREENING 10/10/2019 10/09/2018, 10/09/2018 FALL RISK ASSESSMENT 12/18/2019 12/17/2018, 12/17/2018 MEDICARE ANNUAL WELLNESS 08/04/2020 Postponed from VISIT 1935 (Other) ZOSTER IMMUNIZATION SERIES 08/04/2020 Postponed from (1 of 2) 1987 (Other) DTaP/Tdap/Td Vaccines (2 - 07/07/2029 07/07/2019 Tdap) PNEUMOCOCCAL 65+YRS Completed 11/02/2017, 02/06/2014 INFLUENZA VACCINE Completed 02/04/2019, 02/22/2018, 03/28/2017, Additional history exists HEPATITIS A IMMUNIZATION Aged Out No longer eligible SERIES based on patient's age to complete this topic HPV IMMUNIZATION SERIES Aged Out No longer eligible based on patient's age to complete this topic MENINGOCOCCAL VACCINE IMM Aged Out No longer eligible based on patient's age to complete this topic documented as of this encounter Goals Goal Patient Goal Associated Recent Patient-Stated? Author Type Problems Progress Blood Pressure Blood Pressure 82/38 No Tong, < 140/90 (08/05/2019 MD Tamara 10:49 AM EDT) Note: This is an individualized treatment (blood pressure) goal for Ally Deutsch: Displayed above (on the left) is your goal for blood pressure control. Your most recent blood pressure is also shown above, on the right. You should try to achieve blood pressures that are lower than your goal listed above (on the left). Depression screen (PHQ-9) Depression 9 (10/09/2018 8:43 AM No Tamara Fortune MD total score < 5 EDT) Note: This is an individualized treatment (depression) goal for Ally Deutsch: Displayed above is your goal for a depression screening (PHQ-9) score that would indicate good control of your depression. Diabetes < 7.0 Diabetes Well controlled type 6.3 (03/26/2019 9:39 No Chad Loving 2 diabetes mellitus AM EDT) MD Joselin with peripheral neuropathy Diabetes < 7.0 Diabetes Well controlled type 6.3 (03/26/2019 9:39 No Tamara Fortune MD 2 diabetes mellitus AM EDT) with peripheral neuropathy Note: Diabetes Care Plan According to current 2014 ADA guidelines the patient A1C goal is less than 7. The patient's last A1C was Lab Results Lab Results Value Date/Time GLYCO 7.0 06/01/2014 0904 GLYCO 7.9 01/24/2013 0856 The patient is:at goal . As your provider, it is important that I advise you regarding: your current medications and help you with any challenges you may face taking your medications as directed (ex. instructions, cost, side effects, and interactions). lifestyle changes:exercise, diet, glucose monitoring and medication compliance your clinical goals and how you can achieve success:weight reduction, exercise plan, diet management and glucose monitoring medication management: adjusted medications as appropriate patient education/self-management tools provided: Current self-management tools adequate To successfully manage my Diabetes I will: have lab work every six months if my previous A1c was 7 or less. If my results were greater than 7, I will have lab work every three months. My goal is to control my diabetes by keeping A1c below 7.0 take medications every day as prescribed by my healthcare provider and if unable to take them I will discuss with my provider. exercise/walk 30 minutes 5 day(s) per week. If I experience chest pain, chest tightness, or shortness of breath, I will seek medical attention immediately. check feet daily. If sores or irritation are noticed, will seek medical attention. follow a low carbohydrate and low fat diet. My goal is an LDL (bad cholesterol) number less than 100 when I have my routine lab work. check blood sugar as instructed and will call my healthcare provider if the results are consistently below 70 or above 300. I will monitor for symptoms of low blood sugar (feeling faint, dizzy, lig htheaded, jittery, sweaty, or hungry), if symptoms are noticed, I will eat or drink something (glucose tabs, orange juice, candy) to help raise sugar. record my blood sugar results (including dextrose sticks). Tayla is safe and secure way for you to do this in your medical record online. try to obtain an ideal body weight. My recent weight was Weight: 190 lb ( 86.183 kg). My weight loss goal for my next office visit is 5 lbs . to prevent kidney problems common to people with diabetes I will complete a yearly Microalbumin to check for protein in urine. I will talk with my healthcare provider about medications to prevent diabetic renal disease. to prevent diabetic retinopathy I will see an eye doctor yearly. A yearly dilated eye exam helps prevent blindness. . Glycohemoglobin A1c < 7.0 Diabetes 6.3 (03/26/2019 9:39 AM No Tamara Fortune MD EDT) Note: This is an individualized treatment (diabetes control, HgbA1C) goal for Ally Deutsch: Displayed above is your progress towards your HgbA1C goal. Your goal is shown above (on the left); your most recent HgbA1C is shown on the right. Note that lower numbers are better. Weight loss vs. 18 mo Lifestyle 4.8 (08/05/2019 10:43 AM EDT) Tamara Oakes MD max (lbs) >= 10 Note: This is an individualized lifestyle goal for Ally Deutsch: Your body mass index (BMI) is more than 30. You should lose weight. A reasonable starting goal is to lose 10 pounds. Displayed above is how many pounds you have lost thus far towards your 10 pound weight loss goal. Keep a regular sleep schedule Lifestyle No Tamara Fortune MD Note: This is an individualized lifestyle goal for Ally Deutsch: Please maintain a regular sleep schedule. This may help with some symptoms of depression. Keep immunizations current Lifestyle No Tamara Fortune MD Note: This is an individualized lifestyle goal for Ally Deutsch: Please be sure to keep up-to-date on recommended immunizations. For example, this would include a yearly influenza vaccine. Immunization status can be seen by looking at the Health Maintenance sections of your [facility], Plan of Care, and any After Visit Summaries. Take all prescribed medications as directed Self-management Tamara Oakes MD Note: This is an individualized self-management goal for Ally Deutsch: Please take all prescribed medications as directed. 1. Do not skip doses. If you cannot afford your medications, talk with your doctor. 2. Use a pill reminder system such as a pill box if needed. Your pharmacist can help you with this. 3. Contact your Pharmacy 5 days before your medication runs out. If you cannot take your medications for any reasons, talk with your doctor. 4. Please bring all of your medication bottles and inhalers (or a list of all your medications/inhalers) with you to every visit. Potential barriers to meeting all of your care plan goals will continue to be addressed on an ongoing basis. documented as of this encounter Results Not on filedocumented in this encounter Visit Diagnoses Diagnosis Type 2 diabetes mellitus without complication, without long-term current use of insulin (HCC) Coronary artery disease, angina presence unspecified, unspecified vessel or lesion type, unspecified whether mentasta or transplanted heart Acute cystitis without hematuria Acute cystitis documented in this encounter Administered Medications Medication Order MAR Action Action Date Dose Rate Site ceftriaxone (ROCEPHIN) Given 08/05/2019 12:38 PM 1,000 mg Buttocks - Left injection 1,000 mg EDT 1,000 mg, Injection, NOW, 1 dose, 08/05/19 at 1230 documented in this encounter Insurance Payer Benefit Plan / Subscriber ID Effective Dates Phone Address Type Group MEDICARE MEDICARE PART A [id number] 2002-[place] Medicare & B t AETNA COMMERCIAL AETNA [id number] 2002-[place] Aetna t Guarantor Name Account Type Relation to Date of Phone Billing Patient Address GetAlly Sepulveda Personal/Family 1935 [address] (Home) [place], [place] [phone] (Work) documented as of this encounter
--- OUTSIDE RECORDS SUMMARY | 2019-08-08 01:29 | XMS REPORT | Summary of Care ---
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 She cut it a week ago on a nail. 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) (Primary Dx); Bella Olivera MD Cellulitis of toe of right foot; [address] [address] [address] Puncture wound of great toe of right foot, initial encounter; [place] [address] Primary osteoarthritis of right knee [phone] Allergies Active Allergy Reactions Severity Noted Date Comments Alc-Sertraline 04/15/2007 Fluzone High-Dose Other 03/11/2015 Body aches, fever both times given Hydrocodone SOB 02/22/2004 Lexapro 04/15/2007 Omeprazole GI Reaction 12/07/2015 Diarrhea Oxycodone 06/20/2007 Clopidogrel Rash 02/22/2004 Bupropion 04/15/2007 documented as of this encounter (statuses as of 07/07/2019) Medications Medication Sig Dispensed Refills Start Date End Date Status Aspirin 81 MG Oral Take 81 mg by mouth 0 Active Tab DAILY. acetaminophen Take 2 Tabs by mouth 30 Tab 0 06/04/2014 Active (TYLENOL) 325 MG EVERY FOUR HOURS Oral Tab NEEDED for Pain. Lancets Does not 1 Each by Does not 300 Each 3 11/13/2016 Active apply apply route THREE MiscIndications: TIMES DAILY. Dx: Type 2 diabetes Z79.4 mellitus without complication, unspecified long term care pharmacist insulin use status isosorbide TAKE 1 TABLET BY 90 Tab 3 05/29/2018 Active MONOnitrate (IMDUR) MOUTH DAILY 120 MG Oral TABLET SR 24 HR Insulin Pen Needle Inject 1 Each 30 Each 0 09/03/2018 Active (BD PEN NEEDLE OSIRIS beneath the skin U/F) 32G X 4 MM Does DAILY. Dx: Z79.4 not apply MiscIndications: Type 2 diabetes mellitus without complication, without long-term current use of insulin (HCC) atorvastatin Take 1 Tab by mouth 90 Tab 3 10/09/2018 Active (LIPITOR) 40 MG Oral DAILY. TabIndications: Lipid disorder Insulin Glargine INJECT 45 mL 3 10/09/2018 Active (LANTUS SOLOSTAR) SUBCUTANEOUSLY 40 100 UNIT/ML UNITS EVERY NIGHT AT Subcutaneous BEDTIME Solution Pen-injectorIndicati ons: Type 2 diabetes mellitus without complication (HCC), Type 2 diabetes mellitus without complication, without long-term current use of insulin (HCC) lidocaine 1 Patch by Topical 90 Patch 3 10/09/2018 Active transdermal patch route EVERY (LIDODERM) 5 % Apply TWENTY-FOUR HOURS. externally 12 hours on and 12 PatchIndications: hours off Arthralgia of left knee citalopram (CELEXA) Take 1 Tab by mouth 90 Tab 3 10/09/2018 Active 20 MG Oral DAILY. Take 1/2 TabIndications: daily for 1 week Depression, then increase to 1 unspecified pill daily depression type Additional information Patient taking differently: 20 mg Oral DAILY, (No instructions reported), Reported on 02/13/2019 10:53 AM chlorthalidone (HYGROTON) TAKE 1 TABLET BY 90 Tab 3 11/05/2018 Active 50 MG Oral TabIndications: MOUTH DAILY Essential hypertension ALPRAZolam (XANAX) 0.25 MG TAKE 1 TABLET BY 120 Tab 0 11/29/2018 Active Oral TabIndications: MOUTH 4 TIMES Generalized anxiety DAILY NEEDED FOR disorder ANXIETY. ONE TOUCH ULTRA TEST USE 1 STRIP 3 TIMES 300 Strip 5 11/29/2018 Active STRIPS In Vitro DAILY StripIndications: Type 2 diabetes mellitus without complication (HCC) Losartan Potassium 100 MG Take 1 Tab by mouth 90 Tab 3 01/07/2019 Active Oral TabIndications: DAILY. Essential hypertension carvedilol (COREG) 12.5 MG Take 1 Tab by mouth 180 Tab 3 02/04/2019 Active Oral Tab TWICE DAILY. loperamide (IMODIUM) 2 MG Take 1 Cap by mouth 90 Cap 3 02/13/2019 Active Oral Cap DAILY. nitroglycerin (NITROSTAT) PLACE 1 TAB UNDER 100 Tab 3 02/24/2019 Active 0.4 MG Sublingual SL TONGUE EVERY 5 MIN TabIndications: Angina NEEDED FOR pectoris (HCC) CHEST PAIN. NOT TO EXCEED 3 TABS IN 15 MIN. CALL 911 IF CHEST PAIN PERSISTS. Potassium Chloride ER 20 TAKE ONE TABLET BY 90 Tab 3 04/01/2019 Active MEQ Oral Tab CR MOUTH EVERY DAY FOR LOW AMOUNT POTASSIUM IN BLOOD amLodipine (NORVASC) 5 MG Take 1 Tab by mouth 90 Tab 3 04/01/2019 Active Oral Tab EVERY BEDTIME. isosorbide MONOnitrate TAKE 1 TABLET BY 90 Tab 3 04/07/2019 Active (IMDUR) 120 MG Oral TABLET MOUTH DAILY SR 24 HR cephalexin (KEFLEX) 500 MG Take 1 Cap by mouth 28 Cap 0 07/07/20192019 Active Oral Cap FOUR TIMES DAILY for 7 days. 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 aide Dr Chung 05/11 - Stable - Review in a yr Nuclear medicine stress test At [facility] 2012 as part of chest pain work up - Cath 08/12 [place] - done for chest pain - carvediol was decreased- HTN (hypertension) 02/22/2012 Overview: [facility] 01/2014: renal art duplex negative for NINA [...] as of this encounter (statuses as of 07/07/2019) Resolved Problems Problem Noted Date Resolved Date [...] Coronary atherosclerosis of unspecified type of vessel, [place] 01/21/200704/2014 or graft Overview: and 06/04 nuclear [...] as of this encounter (statuses as of 07/07/2019) Immunizations Name Administration Dates Next Due Influenza [...] 20 Quit: 02/22/1973 Smokeless Tobacco: Never Used Alcohol Use Drinks/Week oz/Week Comments Yes 0 Standard drinks or equivalent 0.0 OCC WINE Sex Assigned at Date Recorded Not on file Job Start Date Occupation Industry Not on file Not on file Not on file Travel History Travel Start Travel End No recent travel history available. documented as of this encounter Last Filed Vital Signs Vital Sign Reading Time Taken Comments Blood Pressure 124/70 07/07/2019 9:51 AM EST Pulse 70 07/07/2019 9:51 AM EST Temperature - - Respiratory Rate - - Oxygen Saturation - - Inhaled Oxygen Concentration - - Weight 91.6 kg (202 lb) 07/07/2019 9:51 AM EST Height 167.6 cm (5' 6") 07/07/2019 9:51 AM EST Body Mass Index 32.6 07/07/2019 9:51 AM EST documented in this encounter Patient Instructions Patient InstructionsChad Loving MD - 07/07/2019 9:40 AM ESTWatch the big toe daily for the redness to go away if redness not resolving in one week then return to office Physical therapy referral for knee osteoarthritis for [facility] Blood test [facility] for diabetes mellitus documented in this encounter Progress Notes Chad Loving MD - 07/07/2019 9:40 AM EST PATIENT: Ally Deutsch : 1935 DATE OF SERVICE: 07/07/2019 CHIEF COMPLAINT: Chief Complaint Patient presents with Wound Patient has a wound on her right great toe that is now hot to the touch and she is diabetic. She cut it a week ago on a nail. Subjective HISTORY OF PRESENT ILLNESS: Ally Deutsch is a 84-y.o. female. 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 ALPRAZolam (XANAX) 0.25 MG Oral Tab TAKE 1 TABLET BY MOUTH 4 TIMES DAILY NEEDED FOR ANXIETY. amLodipine (NORVASC) 5 MG Oral Tab Take 1 Tab by mouth EVERY BEDTIME. Aspirin 81 MG Oral Tab Take 81 mg by mouth DAILY. atorvastatin (LIPITOR) 40 MG Oral Tab Take 1 Tab by mouth DAILY. carvedilol (COREG) 12.5 MG Oral Tab Take 1 Tab by mouth TWICE DAILY. cephalexin (KEFLEX) 500 MG Oral Cap Take 1 Cap by mouth FOUR TIMES DAILY for 7 days. chlorthalidone (HYGROTON) 50 MG Oral Tab TAKE 1 TABLET BY MOUTH DAILY citalopram (CELEXA) 20 MG Oral Tab Take 1 Tab by mouth DAILY. Take 1/2 daily for 1 week then increase to 1 pill daily (Patient taking differently: Take 20 mg by mouth DAILY.) Insulin Glargine (LANTUS SOLOSTAR) 100 UNIT/ML Subcutaneous Solution Pen- injector INJECT SUBCUTANEOUSLY 40 UNITS EVERY NIGHT AT BEDTIME Insulin Pen Needle (BD PEN NEEDLE OSIRIS U/F) 32G X 4 MM Does not apply Misc Inject 1 Each beneath the skin DAILY. Dx: Z79.4 isosorbide MONOnitrate (IMDUR) 120 MG Oral TABLET SR 24 HR TAKE 1 TABLET BY MOUTH DAILY isosorbide MONOnitrate (IMDUR) 120 MG Oral TABLET SR 24 HR TAKE 1 TABLET BY MOUTH DAILY Lancets Does not apply Misc 1 Each by Does not apply route THREE TIMES DAILY. Dx: Z79.4 lidocaine transdermal patch (LIDODERM) 5 % Apply externally Patch 1 Patch by Topical route EVERY TWENTY-FOUR HOURS. 12 hours on and 12 hours off loperamide (IMODIUM) 2 MG Oral Cap Take 1 Cap by mouth DAILY. Losartan Potassium 100 MG Oral Tab Take 1 Tab by mouth DAILY. nitroglycerin (NITROSTAT) 0.4 MG Sublingual SL Tab PLACE 1 TAB UNDER TONGUE EVERY 5 MIN NEEDED FOR CHEST PAIN. NOT TO EXCEED 3 TABS IN 15 MIN. CALL 911 IF CHEST PAIN PERSISTS. ONE TOUCH ULTRA TEST STRIPS In Vitro Strip USE 1 STRIP 3 TIMES DAILY Potassium Chloride ER 20 MEQ Oral Tab CR TAKE ONE TABLET BY MOUTH EVERY DAY FOR LOW AMOUNT POTASSIUM IN BLOOD No current facility-administered medications for this visit. Allergies Allergen Reactions Alc-Sertraline Fluzone High-Dose Other Body aches, fever both times given Hydrocodone SOB Lexapro Omeprazole GI Reaction Diarrhea Oxycodone Plavix [Clopidogrel] Rash Wellbutrin [Bupropion] Social History Socioeconomic History Marital status: Spouse name: Not on file Number of children: Not on file Years of education: Not on file Highest education level: Not on file Occupational History Not on file Social Needs Financial resource strain: Not on file Food insecurity Worry: Not on file Inability: Not on file Transportation needs Medical: Not on file Non-medical: Not on file Tobacco Use Smoking status: Former Smoker Packs/day: 1.00 Years: 20.00 Pack years: 20.00 Last attempt to quit: 02/22/1973 Years since quittin.4 Smokeless tobacco: Never Used Substance and Sexual Activity Alcohol use: Yes Alcohol/week: 0.0 standard drinks Comment: OCC WINE Drug use: No Sexual activity: Yes Partners: Male Lifestyle Physical activity Days per week: Not on file Minutes per session: Not on file Stress: Not on file Relationships Social connections Talks on phone: Not on file Gets together: Not on file Attends mandaeism service: Not on file Active member of club or organization: Not on file Attends meetings of clubs or organizations: Not on file Relationship status: Not on file Intimate partner violence Fear of current or ex partner: Not on file Emotionally abused: Not on file Physically abused: Not on file Forced sexual activity: Not on file Other Topics Concern Back Care Not Asked Bike Helmet Not Asked Blood Transfusions Not Asked Caffeine Concern Not Asked Exercise Not Asked Hobby Hazards Not Asked International Travel Not Asked Service Not Asked Occupational Exposure Not Asked Seat Belt Not Asked Self-Exams Not Asked Sleep Concern Not Asked Special Diet Not Asked Stress Concern Not Asked Weight Concern Not Asked Social History Narrative Retired [employer] 4 children Family history is noncontributory. ROS no nausea and vomitting no fevers no toenail issues She asks for physical therapy for osteoarthritis pain of right knee for at least 6 month Objective PHYSICAL EXAM: VITALS: BP 124/70 | Pulse 70 | Ht 5' 6" (1.676 m) | Wt 202 lb (91.6 kg) | BMI 32.60 kg/m Body mass index is 32.6 kg/m. Physical Exam see image above skin intact No exudate there is a plantar aspect puncture wound no drainage no tenderness no fluctuance ASSESSMENT / IMPRESSION: ICD-9-CM ICD-10-CM 1. 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 Cellulitis of toe of right foot keflex one week proximal edge of erythema was outlined in black marker if proximal spread after 48-72 hours then call back [phone] L03.031 3. Puncture wound of great toe of right foot, initial encounter tetanus vaccine 893.0 S91.131A 4. Primary osteoarthritis of right knee physical therapy 715.16 M17.11 REFER TO PHYSICAL THERAPY / REHAB Patient Instructions Watch the big toe daily for the redness to go away if redness not resolving in one week then return to office Physical therapy referral for knee osteoarthritis for [facility] Blood test july for diabetes mellitus Chad Loving MD 07/07/2019 11:56 documented in this encounter Plan of Treatment Date Type Specialty Care Team Description 08/28/2019 Lab Internal Medicine 09/08/2019 Office Visit Internal Medicine Tamara Fortune MD [address] [place] [address] [phone] Name Type Priority Associated Diagnoses Order Schedule REFER TO PHYSICAL Referral Routine Primary osteoarthritis of Ordered: 07/07 THERAPY / REHAB right knee Health Maintenance Due Date Last Done Comments MEDICARE ANNUAL WELLNESS 1935 VISIT DTaP/Tdap/Td Vaccines (1 - 1948 Tdap) ZOSTER IMMUNIZATION SERIES 1987 (1 of 2) FOOT EXAM 05/07/2019 05/07/2018, 05/07/2018, 05/07/2018, Additional history exists Diabetic Eye Exam 07/02/2019 07/02/2018, 07/02/2018 HEMOGLOBIN A1C 09/25/2019 03/26/2019, 10/01/2018, 02/28/2018, Additional history exists DEPRESSION SCREENING 10/10/2019 10/09/2018, 10/09/2018 FALL RISK ASSESSMENT 12/18/2019 12/17/2018, 12/17/2018 PNEUMOCOCCAL 65+YRS Completed 11/02/2017, 02/06/2014 INFLUENZA VACCINE [...] Type Problems Progress Blood Pressure Blood Pressure 124/70 No Tong, < 140/90 (07/07/2019 MD Tamara 9:51 AM EST) Note: This is an individualized treatment (blood pressure) goal for Ally Coco Get: Displayed above (on the left) is your [...] an individualized treatment (depression) goal for Ally Coco Get: Displayed above is your goal for a depression screening (PHQ-9) score that would indicate good control of your depression. Diabetes < 7.0 Diabetes Well controlled type 6.3 (03/26/2019 9:39 No Chad Loving 2 diabetes mellitus AM EDTMargie Olivera MD with peripheral neuropathy Diabetes < 7.0 Diabetes [...] my blood sugar results (including dextrose sticks). Social[employer]fee is safe and secure way for you [...] < 7.0 Diabetes 6.3 (03/26/2019 9:39 AM Tamara Oakes MD EDT) Note: This is an individualized treatment (diabetes control, HgbA1C) goal for Ally Bowensd: Displayed above is your progress towards your HgbA1C goal. Your goal is shown above (on the left); your most recent HgbA1C is shown on the right. Note that lower numbers are better. Weight loss vs. 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) Type II or unspecified type diabetes mellitus with neurological manifestations , not stated as uncontrolled Cellulitis of toe of right foot Cellulitis and abscess of toe, unspecified Puncture wound of great toe of right foot, initial encounter Primary osteoarthritis of right knee Primary localized osteoarthrosis, lower leg documented in this encounter Insurance Payer Benefit Plan / Subscriber ID Effective Dates Phone Address Type Group MEDICARE MEDICARE PART A xxxxxxxxxxx 2002-Mary Medicare & B t AETNA COMMERCIAL AETNA xxxxxxxxxx [facility] Aetna t Guarantor Name Account Type Relation to Date of Phone Billing Patient Address Ally Deutsch Personal/Family 1935 [address] (Home) [place], [place] [phone] [address] (Work) documented as of this encounter
[2019-08-08 01:44] LABS: BUN/Creatinine Ratio 20.4 (8-20); Calcium 8.7 mg/dL (8.6-10.3); EGFR African American 65.7 (>60); EGFR Non-African American 54.3 (>60); Globulin 3.1 g/dL (2-4); Potassium 3.2 mmol/L (3.5-5.0); Total Bilirubin 0.5 mg/dL (0.2-1.0); Total Protein 6.1 g/dL (6.4-8.9)
[2019-08-08 01:46] LABS: Troponin I 0.02 ng/mL (<0.03)
[2019-08-08 02:21] LABS: ABS Basophils 0.1 10^3/ul (0-0.2); ABS Eosinophils 0.1 10^3/ul (0-0.6); ABS Lymphocytes 1.4 10^3/ul (1.0-4.8); ABS Monocytes 1.6 10^3/ul (0-0.8); ABS Neutrophils 6.5 10^3/ul (1.5-7.7); Eosinophil % 0.9 %; Nucleated Red Blood Cells % 0.1
[2019-08-08 05:48] VITALS: BP 147/98
== END 2019-08-08 05:47 | disposition home or self-care (01) ==
LOC: ED 00:57
DX: R07.9 Chest pain, unspecified (principal); E11.9 Type 2 diabetes mellitus without complications; D64.9 Anemia, unspecified; I25.10 Atherosclerotic heart disease of native coronary artery without angina pectoris; E78.00 Pure hypercholesterolemia, unspecified; I10 Essential (primary) hypertension; I25.2 Old myocardial infarction; K21.9 Gastro-esophageal reflux disease without esophagitis; F41.9 Anxiety disorder, unspecified; Z87.891 Personal history of nicotine dependence; Z79.4 Long term (current) use of insulin; Z79.82 Long term (current) use of aspirin; Z79.899 Other long term (current) drug therapy; Z88.5 Allergy status to narcotic agent; Z88.8 Allergy status to other drugs, medicaments and biological substances
CPT/HCPCS: 36415; 71046; 80053; 83605; 84484; 85025; 85379; 93005; 99284

== ENCOUNTER 2020-08-24 17:50 | Observation (INO) ==
[2020-08-24 19:13] LABS: ABS Eosinophils 0.1 10^3/ul (0-0.6); ABS Lymphocytes 1.9 10^3/ul (1.0-4.8); ABS Monocytes 0.9 10^3/ul (0-0.8); ABS Neutrophils 4.9 10^3/ul (1.5-7.7); Eosinophil % 1.8 %; Hematocrit 35 % (35-47); Hemoglobin 11.6 g/dL (12.0-16.0); Lymphocyte % 24.1 %; Mean Corpuscular HGB Conc 33 g/dL (31-36); Mean Corpuscular Hemoglobin 31 pg (27-31); Mean Corpuscular Volume 94 fL (80-97); Mean Platelet Volume 8.8 fL (7.4-10.4); Platelet Count 185 10^3/uL (150-450); Red Blood Count 3.73 10^6 /uL (3.70-4.87); Red Cell Distribution Width 13 % (10-15); White Blood Count 7.9 10^3/uL (3.5-10.8)
[2020-08-24 19:32] LABS: Troponin I 0.01 ng/mL (<0.03)
[2020-08-24 19:41] LABS: Albumin 3.4 g/dL (3.2-5.2); Albumin/Globulin Ratio 1.1 (1-3); Calcium 9.5 mg/dL (8.6-10.3); EGFR African American 74.3 (>60); EGFR Non-African American 61.4 (>60); Magnesium 1.4 mg/dL (1.9-2.7); Potassium 3.7 mmol/L (3.5-5.0); Total Bilirubin 0.4 mg/dL (0.2-1.0); Total Protein 6.4 g/dL (6.4-8.9)
[2020-08-24 20:18] LABS: TSH Ultra Thyroid Stim Horm 1.79 mcIU/mL (0.34-5.60)
[2020-08-24 21:06] LABS: INR 1.02 (0.82-1.09)
[2020-08-24] MEDS ORDERED: Dextrose 50% Syringe 50 ml 25 GM/50 ML SYRINGE IV PUSH PRN (21:17)
[2020-08-24] MEDS ORDERED: Lidocaine PATCH 5% PATCH TRANSDERM PRN (21:17)
[2020-08-24] MEDS ORDERED: Insulin GLARGINE 100 un/ml 10 ml VIAL SUBCUT ONE (21:21)
[2020-08-24] MEDS ORDERED: Magnesium Sulfate IV 3 GM in NS 0.9% 100 ml BAG 100 ML IVPB ONE (21:28)
[2020-08-24 22:13] LABS: HDL Cholesterol 38.2 mg/dL
[2020-08-25] MEDS ORDERED: hydrALAZINE 20 mg/ml 1 ML Vial IV IV SLOW PU PRN (00:55)
[2020-08-25 07:50] LABS: Urine Appearance Clear; Urine Bilirubin Negative (Negative); Urine Blood Negative (Negative); Urine Color Straw; Urine Glucose Negative (Negative); Urine Ketones Negative (Negative); Urine Nitrite Negative (Negative); Urine Protein Negative (Negative); Urine Urobilinogen Negative (Negative)
[2020-08-25 08:42] VITALS: BP 130/82
[2020-08-25] MEDS ORDERED: Isosorbide Mononit ER 60mg TAB PO SCH (09:00)
[2020-08-25] MEDS ORDERED: Aspirin EC 81 mg TAB.EC (enteric coated) PO SCH (09:00)
[2020-08-25] MEDS ORDERED: Regadenoson 0.4 MG/5 ML SYRINGE ONE (10:34)
[2020-08-25] MEDS ORDERED: Aminophylline 25 MG/ML VIAL ONE (10:37)
[2020-08-25] MEDS ORDERED: Lidocaine Patch REMOVE PATCH PATCH OFF SCH (21:00)
== END 2020-08-25 15:00 | disposition home or self-care (01) ==
LOC: ED 17:50 → MEDTELE 17:50
PROVIDERS: ADMIT Internal Medicine; ATTEND Pediatrics